=== PATIENT | male | born 1970 | race Caucasian/White ===

== ENCOUNTER 2021-04-03 11:19 | Outpatient (CLI) | payer BC, SELFPAY ==
[2021-04-03 18:14] LABS: Basophils Absolute Auto 0.1 K/mm3 (0.0-0.1); Basophils Percent Auto 0.7 % (0.2-1.2); Eosinophils Absolute Auto 0.5 K/mm3 (0-0.3); Eosinophils Percent Auto 6.9 % (0-4.4); Hematocrit 41.3 % (42.0-52.0); Hemoglobin 12.8 g/dL (14.0-18.0); Immature Granulocyte Absolute 0.01 K/mm3 (0.00-0.031); Immature Granulocyte Percent A 0.1 % (0-0.5); Lymphocytes Absolute Auto 0.86 K/mm3 (0.9-3.2); Lymphocytes Percent Auto 12.8 % (18.3-44.2); Mean Corpuscular Hemoglobin 26.1 pg (26-34); Mean Corpuscular Volume 84.3 fl (80-100); Mean Platelet Volume 11.1 fl (7.4-10.4); Monocytes Absolute Auto 0.5 K/mm3 (0.1-0.6); Monocytes Percent Auto 7.2 % (2.6-8.5); Neutrophils Absolute Auto 4.8 K/mm3 (1.3-6.7); Neutrophils Percent Auto 72.3 % (45.5-73.1); Platelet Count Result 286 k/mm3 (150-375); Red Cell Distribution Width 16.8 % (11.5-14.5); White Blood Count 6.7 K/mm3 (4.5-10.0)
[2021-04-03 18:17] LABS: Add Urine Microscopic? YES; Appearance Urine Clear (Clear); Bilirubin Urine Negative (Negative); Blood Urine 1+ (Negative); Color Urine Yellow (Yellow); Glucose Urine UA Negative (Negative); Ketones Urine Negative (Negative); Leukocyte Esterase Ur Negative LEU/UL (Negative); Mucus Urine Rare /lpf; Nitrate Urine Negative (Negative); Protein Urine Negative (Negative); RBC Urine 0-2 /hpf (0-2); Specific Grav Ur 1.018 (1.001-1.035); Urobilinogen Urine Negative mg/dL (<2.0); WBC Urine 0-3 /hpf
[2021-04-03 18:22] LABS: Alanine Aminotransferase 18 U/L (4-50); Alkaline Phosphatase 85 U/L (38-126); Anion Gap 4 mmol/L (8-16); Aspartate Amino Transferase 22 U/L (17-59); Bilirubin,Total 0.6 mg/dL (0.2-1.3); Blood Urea Nitrogen 13 mg/dL (9-20); Calcium 9.5 mg/dL (8.4-10.2); Carbon Dioxide 29 mmol/L (22-30); Chloride 104 mmol/L (98-107); Cholesterol 233 mg/dL (0-200); Estimated Glomerular Filt Rate > 60; Glucose 93 mg/dL (75-110); HDL Direct 63 mg/dL; Potassium 4.5 mmol/L (3.4-5.0); Sodium 137 mmol/L (137-145); Triglycerides 104 mg/dL (<150)
[2021-04-03 18:33] LABS: LDL Cholesterol Direct 127 mg/dL
[2021-04-03 18:39] LABS: Vitamin D 25 Hydroxy 15.9 ng/mL
[2021-04-03 18:54] LABS: Prostate Specific Antigen 0.4 ng/mL (< OR = 4.0)
[2021-04-03 19:35] LABS: Folic Acid > 20.0 ng/mL (2.76->20)
[2021-04-07 09:28] LABS: C-Peptide 1.91 ng/mL (0.80-3.85)
[2021-04-08 10:20] LABS: Testosterone Free 36.6 pg/mL (35.0-155.0); Testosterone Total 183 ng/dL (250-1100)
== END 2021-04-03 11:20 | disposition home or self-care (01) ==
PROVIDERS: PCP Family Medicine; Visit Provider Family Medicine
DX: Z12.5 Encounter for screening for malignant neoplasm of prostate (principal); Z99.89 Dependence on other enabling machines and devices; Z51.81 Encounter for therapeutic drug level monitoring; Z79.899 Other long term (current) drug therapy; Z82.62 Family history of osteoporosis; G47.33 Obstructive sleep apnea (adult) (pediatric); I10 Essential (primary) hypertension; Z86.79 Personal history of other diseases of the circulatory system; Z00.00 Encounter for general adult medical examination without abnormal findings
CPT/HCPCS: 36415; 80053; 80061; 81001; 82306; 82607; 82746; 84153; 84402; 84403; 84443; 84681; 85025; G0103

== ENCOUNTER 2021-04-14 13:42 | Outpatient (CLI) | payer BC, SELFPAY ==
[2021-04-14 17:05] LABS: D Dimer 0.68 ug/mL (<0.48)
[2021-04-16 22:31] LABS: LH 4.2 mIU/mL (1.5-9.3); Prolactin 12.4 ng/mL (***)
[2021-04-20 20:21] LABS: Estradiol, Ultrasensitive 32 pg/mL (< OR = 29)
== END 2021-04-14 13:43 | disposition home or self-care (01) ==
LOC: ANHBWCLAB 13:43
PROVIDERS: PCP Family Medicine; Visit Provider Family Medicine
DX: E29.1 Testicular hypofunction (principal)
CPT/HCPCS: 36415; 82670; 83002; 84146; 85380

== ENCOUNTER 2021-05-18 11:01 | Outpatient (CLI) | payer BC, SELFPAY ==
[2021-05-18 11:30] LABS: Basophils Percent Auto 0.8 % (0.2-1.2); Eosinophils Absolute Auto 0.5 K/mm3 (0-0.3); Eosinophils Percent Auto 9.8 % (0-4.4); Hemoglobin 13.2 g/dL (14.0-18.0); Immature Granulocyte Absolute 0.02 K/mm3 (0.00-0.031); Immature Granulocyte Percent A 0.4 % (0-0.5); Lymphocytes Absolute Auto 0.76 K/mm3 (0.9-3.2); Lymphocytes Percent Auto 14.9 % (18.3-44.2); Mean Corpuscular HGB Conc 32.2 g/dl (32-36); Mean Corpuscular Hemoglobin 26.7 pg (26-34); Mean Corpuscular Volume 82.8 fl (80-100); Mean Platelet Volume 10.8 fl (7.4-10.4); Monocytes Absolute Auto 0.6 K/mm3 (0.1-0.6); Neutrophils Absolute Auto 3.2 K/mm3 (1.3-6.7); Neutrophils Percent Auto 63.1 % (45.5-73.1); Platelet Count Result 248 k/mm3 (150-375); Red Blood Count 4.95 M/mm3 (4.6-6.20); Red Cell Distribution Width 15.2 % (11.5-14.5); Reticulocyte Hemoglobin Conten 32.9 pg (28.2-35.7); Reticulocytes Absolute 0.08 B/L (32.2-175.7); White Blood Count 5.1 K/mm3 (4.5-10.0)
[2021-05-18 16:44] LABS: Alanine Aminotransferase 22 U/L (4-50); Albumin Level 4.1 g/dL (3.5-5.1); Alkaline Phosphatase 94 U/L (38-126); Anion Gap 9 mmol/L (8-16); Aspartate Amino Transferase 29 U/L (17-59); Bilirubin,Total 0.5 mg/dL (0.2-1.3); Blood Urea Nitrogen 16 mg/dL (9-20); Calcium 9.3 mg/dL (8.4-10.2); Carbon Dioxide 25 mmol/L (22-30); Chloride 101 mmol/L (98-107); Estimated Glomerular Filt Rate > 60; Glucose 98 mg/dL (75-110); Lactate Dehydrogenase 458 U/L (313-618); Potassium 4.4 mmol/L (3.4-5.0); Sodium 135 mmol/L (137-145)
[2021-05-18 16:47] LABS: Iron 54 ug/dL (49-181)
[2021-05-18 16:58] LABS: Percent Iron Saturation 13 % (20-50)
[2021-05-18 17:40] LABS: Folic Acid 11.1 ng/mL (2.76->20)
[2021-05-22 12:19] LABS: Methylmalonic Acid 51 nmol/L (87-318)
[2021-05-23 17:26] LABS: Soluble Transferrin Receptor 1.29 mg/L (0.76-1.76)
== END 2021-05-18 11:02 | disposition home or self-care (01) ==
LOC: ANHLAB 11:06
PROVIDERS: PCP Family Medicine; Visit Provider Internal Medicine Hematology & Oncology
DX: D64.9 Anemia, unspecified (principal)
CPT/HCPCS: 36415; 80053; 82607; 82728; 82746; 83540; 83550; 83615; 83921; 84238; 85025; 85046

== ENCOUNTER 2021-08-10 08:02 | Outpatient (CLI) | payer BC, SELFPAY ==
[2021-08-10 20:51] LABS: Hemoglobin A1C 5.8 % (<5.7)
[2021-08-10 21:04] LABS: Cortisol Baseline 9.95 ug/dL
[2021-08-13 04:32] LABS: Sex Hormone Binding Globulin 23 nmol/L (10-50)
[2021-08-13 10:33] LABS: Testosterone Total 203 ng/dL (250-1100)
[2021-08-14 04:46] LABS: Testosterone Free 34.1 pg/mL (46.0-224.0)
[2021-08-16 07:11] LABS: FSH 3.7 mIU/mL (1.6-8.0); LH 3.2 mIU/mL (1.5-9.3)
[2021-08-16 22:47] LABS: Estradiol, Ultrasensitive 23 pg/mL (< OR = 29)
== END 2021-08-10 08:03 | disposition home or self-care (01) ==
LOC: ANHBWCLAB 08:05
PROVIDERS: PCP Family Medicine; Visit Provider Internal Medicine Endocrinology, Diabetes & Metabolism
DX: E29.1 Testicular hypofunction (principal); R79.89 Other specified abnormal findings of blood chemistry
CPT/HCPCS: 36415; 82533; 82670; 83001; 83002; 83036; 84270; 84402; 84403

== ENCOUNTER 2021-08-15 10:44 | Outpatient (CLI) | payer BC, SELFPAY ==
[2021-08-15 11:05] LABS: Basophils Percent Auto 0.5 % (0.2-1.2); Eosinophils Absolute Auto 0.4 K/mm3 (0-0.3); Eosinophils Percent Auto 6.3 % (0-4.4); Hematocrit 39.6 % (42.0-52.0); Hemoglobin 12.9 g/dL (14.0-18.0); Immature Granulocyte Absolute 0.01 K/mm3 (0.00-0.031); Immature Granulocyte Percent A 0.2 % (0-0.5); Lymphocytes Absolute Auto 0.85 K/mm3 (0.9-3.2); Lymphocytes Percent Auto 12.8 % (18.3-44.2); Mean Corpuscular HGB Conc 32.6 g/dl (32-36); Mean Corpuscular Volume 86.1 fl (80-100); Mean Platelet Volume 10.4 fl (7.4-10.4); Monocytes Absolute Auto 0.5 K/mm3 (0.1-0.6); Monocytes Percent Auto 8.1 % (2.6-8.5); Neutrophils Absolute Auto 4.8 K/mm3 (1.3-6.7); Neutrophils Percent Auto 72.1 % (45.5-73.1); Platelet Count Result 260 k/mm3 (150-375); Red Cell Distribution Width 14.3 % (11.5-14.5); White Blood Count 6.7 K/mm3 (4.5-10.0)
[2021-08-15 17:44] LABS: Iron 102 ug/dL (49-181)
[2021-08-15 17:54] LABS: Percent Iron Saturation 28 % (20-50)
[2021-08-15 19:15] LABS: Folic Acid 11.5 ng/mL (2.76->20)
== END 2021-08-15 10:45 | disposition home or self-care (01) ==
LOC: ANHLAB 10:47
PROVIDERS: PCP Family Medicine; Visit Provider Internal Medicine Hematology & Oncology
DX: D64.9 Anemia, unspecified (principal)
CPT/HCPCS: 36415; 82607; 82728; 82746; 83540; 83550; 85025

== ENCOUNTER → 2021-08-26 00:34 | Outpatient (CLI) | payer BC, SELFPAY ==
[2021-08-26 17:04] LABS: SARS-CoV-2 RNA PCR Negative
== END ==
PROVIDERS: PCP Family Medicine; Visit Provider Internal Medicine Gastroenterology
DX: Z01.812 Encounter for preprocedural laboratory examination (principal); Z20.822 Contact with and (suspected) exposure to COVID-19
CPT/HCPCS: C9803; U0003; U0005

== ENCOUNTER 2021-08-30 00:51 | Day surgery (SDC) | payer BC, SELFPAY ==
[2021-08-11 14:18] VITALS: BMI 56.6
--- NOTE | 2021-08-29 10:25 | WPDANESEPPF ---
Anes - Initial Pre Proc Eval Procedure: Operation Date: 08/30/21 10:00 Proposed Procedures p Screening Colonoscopy - Jose Alejandro Blackwell MD Date/Time: 08/29/21 10:25 Surgeon: Jose Alejandro Blackwell MD Pre Op Diagnosis: neoplasm screening Patient Data Age: 50 Gender: M Height: 1.88 m Weight: 200.2 kg Allergies Allergy/AdvReac Type Severity Reaction Status Date / Time No Known Allergies Allergy Verified 08/30/21 08:56 Home Medications Medication Instructions Recorded Confirmed Type cetirizine 10 mg tablet 10 mg PO DAILY PRN 04/03/21 08/30/21 History lisinopril 20 1 tablet PO DAILY #30 tablet 06/16/21 08/30/21 Rx mg-hydrochlorothiazide 25 mg tablet cholecalciferol (vitamin D3) 50 100 mcg PO DAILY cap 08/08/21 08/30/21 History mcg (2,000 unit) capsule cyanocobalamin (vitamin B-12) 5,000 mcg PO DAILY 08/08/21 08/30/21 History 5,000 mcg capsule ferrous sulfate 325 mg (65 mg 325 mg PO DAILY 08/08/21 08/30/21 History iron) tablet testosterone 20.25 mg/1.25 gram 1 pump TOPICAL DAILY 90 Days #150 g 08/17/21 08/30/21 Rx (1.62 %) transdermal gel pump Patient hx anesthesia problems: none Family hx anesthesia problems: none Results Review: All pre-operative results and documents have been reviewed as part of the pre-operative evaluation. [facility] Past Medical History Medical History H/O migraine H/O: HTN (hypertension) History of frequent headaches VICKI (obstructive sleep apnea) Screening for colon cancer 03/2021 normal cologard hx Screening PSA (prostate specific antigen) 04/03/2021 psa ordered Family History Family History Father Hypertension Lung cancer Mother Hypertension Sibling Thyroid disorder Grandparent Lung cancer Heart problem Social History Social History Smoking status: Never smoker Alcohol intake: current Drinks per week: 2 Substance use: never Substance use type: does not use Living arrangements: with friend(s) Spiritual care concerns: No Anes - Eval Final PreProcedure Day of Procedure 08/29/21 10:25 Patient weight: super morbidly obese Heart: regular rate and rhythm Lungs: clear to auscultation and normal air movement Airway: Mallampati scale class II Neurological: alert and oriented Last oral intake: >/= 8 hours ASA classification: III Emergent: no Anesthetic plan: proceed Anesthesia type and monitoring: general GIVS and standard monitoring Results Review: All pre-operative results and documents have been reviewed as part of the pre-operative evaluation. Informed Consent: The patient's anesthetic plan and its attendant risks and benefits were discussed with the patient/family/POA. Questions were solicited and answers provided to the satisfaction of the patient/family/POA.
[2021-08-30 09:02] VITALS: BP 159/79; PULSE 85; RESP 18; TEMP 36.1; O2SAT 98
[2021-08-30] MEDS: LACTATED RINGERS 1,000 ML 150 ML IV CONT (09:09)
--- NOTE | 2021-08-30 10:20 | PM.HPGS ---
History of Present Illness History of Present Illness Consent: Risks, benefits, and alternatives have been discussed and questions answered. Patient agrees to proceed with procedure. Chief complaint: neoplasm screening Narrative: Yandel Li is a 50 year old male here for first screening colonoscopy Review of Systems Constitutional: Constitutional: Denies headache(s) and Denies weakness Eyes: Eyes: Denies blurry vision ENT: Reports Normal hearing present, Denies headache(s) and Denies neck pain Cardiovascular: Cardiovascular: Denies chest pain and Denies dyspnea Respiratory: Respiratory: Denies dyspnea Gastrointestinal: Gastrointestinal: Reports no additional gastrointestinal complaints Genitourinary: Genitourinary: Denies dysuria Musculoskeletal: Musculoskeletal: Denies neck pain Integumentary/Breasts: Skin/Breast: Denies dry skin Neurologic: Reports Normal hearing present, Denies headache(s) and Denies weakness Psychiatric: Psychiatric: Denies anxiety Endocrine: Endocrine: Denies change in body appearance Hematologic/Lymphatic: Hematologic/Lymphatic: Denies easy bleeding Allergic/Immunologic: Allergic/Immunologic: Denies urticaria PMFSH Past Medical History Medical History H/O migraine H/O: HTN (hypertension) History of frequent headaches VICKI (obstructive sleep apnea) Screening for colon cancer 03/2021 normal cologard hx Screening PSA (prostate specific antigen) 04/03/2021 psa ordered Family History Family History Father Hypertension Lung cancer Mother Hypertension Sibling Thyroid disorder Grandparent Lung cancer Heart problem Social History Social History Smoking status: Never smoker Alcohol intake: current Drinks per week: 2 Substance use: never Substance use type: does not use Living arrangements: with friend(s) Spiritual care concerns: No Meds Home Medications and Allergies Home Medications Medication Instructions Recorded Confirmed Type cetirizine 10 mg tablet 10 mg PO DAILY PRN 04/03/21 08/30/21 History lisinopril 20 1 tablet PO DAILY #30 tablet 06/16/21 08/30/21 Rx mg-hydrochlorothiazide 25 mg tablet cholecalciferol (vitamin D3) 50 100 mcg PO DAILY cap 08/08/21 08/30/21 History mcg (2,000 unit) capsule cyanocobalamin (vitamin B-12) 5,000 mcg PO DAILY 08/08/21 08/30/21 History 5,000 mcg capsule ferrous sulfate 325 mg (65 mg 325 mg PO DAILY 08/08/21 08/30/21 History iron) tablet testosterone 20.25 mg/1.25 gram 1 pump TOPICAL DAILY 90 Days #150 g 08/17/21 08/30/21 Rx (1.62 %) transdermal gel pump Allergies Allergy/AdvReac Type Severity Reaction Status Date / Time No Known Allergies Allergy Verified 08/30/21 08:56 Vital Signs Vital Signs - 24 hr 08/30/21 09:02 Temperature 96.9 F L Pulse Rate 85 Respiratory Rate 18 Blood Pressure 159/79 H Pulse Oximetry 98 Exam Const: General: comfortable and no acute distress HENMT: General nose exam: Normal nares present Eyes: General: appearance normal, both eyes and all related structures Neck: Neck: no JVD Resp: Auscultation: clear to auscultation bilaterally Cardio: Rate: regular rate Rhythm: regular rhythm GI: Inspection: non-distended GI Palp: Yes Soft to palpation Skin: General skin exam: normal color Neuro: General: gait normal Speech: normal speech Extrem: General: normal to inspection Psych: Mental Status: mental status grossly normal Assessment and Plan Assessment and plan (1) Screening for colon cancer: Code(s): Z12.11 - Encounter for screening for malignant neoplasm of colon Status: Acute Assessment and Plan: colonoscopy
[2021-08-30 10:56] VITALS: BP 104/55; PULSE 77; RESP 17; O2SAT 99
[2021-08-30 11:06] VITALS: BP 120/77; PULSE 72; RESP 18; O2SAT 100
[2021-08-30 11:16] VITALS: BP 129/71; PULSE 71; RESP 16; O2SAT 99
== END 2021-08-30 11:39 | disposition home or self-care (01) ==
PROVIDERS: PCP Family Medicine; Visit Provider Internal Medicine Gastroenterology
PROC: 0DJD8ZZ Inspection of Lower Intestinal Tract, Via Natural or Artificial Opening Endoscopic (ICD-10-PCS; CPT 45378; principal; 2021-08-30 10:00)
DX: Z12.11 Encounter for screening for malignant neoplasm of colon (principal); D12.2 Benign neoplasm of ascending colon; K64.8 Other hemorrhoids; K64.4 Residual hemorrhoidal skin tags; I10 Essential (primary) hypertension; G47.33 Obstructive sleep apnea (adult) (pediatric); E66.01 Morbid (severe) obesity due to excess calories; Z68.43 Body mass index [BMI] 50.0-59.9, adult
CPT/HCPCS: 45385; 88305; C9803; J2704; J7120; U0003; U0005

== ENCOUNTER 2021-10-16 19:01 | Emergency (ER) | payer BC, SELFPAY ==
--- NOTE | ~2021-10-16 | XR_ITS ---
EXAMINATION: XR chest 2V EXAM DATE: 10/16/2021 19:40 INDICATION: Cough for one week. TECHNIQUE: Frontal and lateral projections of the chest obtained and reviewed. There is no prior zaida dy for comparison. FINDINGS: The lungs are clear. There are no pleural effusions. The cardiomediastinal silhouette is within normal limits. There is no pneumothorax suspected. The bones and soft tissues are unremarkab le. IMPRESSION: No acute cardiopulmonary findings. Reviewed, dictated and finalized at location A. HER ASST
[2021-10-16 19:06] VITALS: BP 160/81; PULSE 107; RESP 20; TEMP 38.3; O2SAT 96
--- NOTE | 2021-10-16 19:24 | ED.GENADULT ---
HPI - General Adult General Chief complaint: Fever Stated complaint: feeling bad after shingle shot Source: patient Mode of arrival: ambulatory Limitations: no limitations History of Present Illness HPI narrative: 50 y/o male. PMHx HTN, LENNY. Presents to [facility] today with acute complaints of nasal congestion, semi-productive cough, body aches, and chills for the past 1 week. Pt tells me that he had a Shingles shot 5 in the past 1 week, and thought his symptoms were related to his immunization, however have failed to improve despite OP OTC remedies. Reported fevers. No GARCIA, sore throat, otalgia. No chest pain, palpitations, dyspnea, edema. No rash. Client is without additional acute c/o illness upon PE. Related Data Home Medications Medication Instructions Recorded Confirmed cetirizine 10 mg tablet 10 mg PO DAILY PRN 04/03/21 10/16/21 cholecalciferol (vitamin D3) 50 100 mcg PO DAILY cap 08/08/21 10/16/21 mcg (2,000 unit) capsule cyanocobalamin (vitamin B-12) 5,000 mcg PO DAILY 08/08/21 10/16/21 5,000 mcg capsule ferrous sulfate 325 mg (65 mg 325 mg PO DAILY 08/08/21 10/16/21 iron) tablet Allergies Allergy/AdvReac Type Severity Reaction Status Date / Time No Known Allergies Allergy Verified 10/16/21 19:06 Review of Systems Review of Systems: CONSTITUTIONAL: Positive fever. No chills, sweats. Bodyaches. EYES: Denies visual changes, redness, discharge. ENT: Positive rhinorrhea, congestion. No sore throat, otalgia. CARDIOVASCULAR: Denies chest pain, palpitations, edema. RESPIRATORY: Denies dyspnea, wheezing. Positive cough GASTROINTESTINAL: Denies abdominal pain, nausea, vomiting, diarrhea. GENITOURINARY: Denies dysuria, hematuria, abnormal discharge SKIN: Denies rash or itching. MUSCULOSKELETAL: Denies acute back pain, joint pain, or myalgia. NEUROLOGIC: Denies numbness, or focal weakness. PSYCHIATRIC: Denies anxiety or depression. All systems reviewed & are unremarkable except as noted in HPI and below PMFSH Past Medical History Medical History H/O migraine H/O: HTN (hypertension) History of frequent headaches VICKI (obstructive sleep apnea) Screening for colon cancer 03/2021 normal cologard hx Screening PSA (prostate specific antigen) 04/03/2021 psa ordered Family History Family History Father Hypertension Lung cancer Mother Hypertension Sibling Thyroid disorder Grandparent Lung cancer Heart problem Social History Social History Smoking status: Never smoker Alcohol intake: current Drinks per week: 2 Substance use: never Substance use type: does not use Spiritual care concerns: No Exam Narrative: GENERAL: This is a well-nourished, well-developed adult, in no apparent distress. HEAD: normocephalic, atraumatic. EYES: PERRL. Sclera clear/white. EARS: External ears normal, auditory canals clear and without drainage, TMs normal. NOSE: External nose normal. Positive Rhinorrhea, nasal discharge, no obstruction, nares patent. THROAT: Mucous membranes moist, posterior pharynx erythematous. No exudates. NECK: Neck supple, non-tender without lymphadenopathy, masses or thyromegaly. CARDIOVASCULAR: Regular rate and rhythm without murmurs, gallops, or rubs. RESPIRATORY:Upper airway Rhonchi, cleared with cough. Breath sounds equal bilaterally. No wheezes, rales, or distress. GASTROINTESTINAL: Abdomen soft, non-tender, nondistended. Bowel sounds are active. No guarding. SKIN: warm, intact with no suspicious lesions or rash, good texture and turgor. NEURO: Alert, active, and age appropriate. No focal neurologic deficits. Course Vital Signs Vital signs: Vital Signs Temperature 38.3 C H 10/16/21 19:06 Pulse Rate 107 H 10/16/21 19:06 Respiratory Rate 20 10/16/21 19:06 Blood Pressur
== END 2021-10-16 20:00 | disposition home or self-care (01) ==
PROVIDERS: Emergency Provider Nurse Practitioner Adult Health; PCP Family Medicine
DX: U07.1 COVID-19 (principal); I10 Essential (primary) hypertension
CPT/HCPCS: 71046; 87426; 87804; 99213; C9803; G0463

== ENCOUNTER 2022-02-05 10:58 | Outpatient (CLI) | payer BC, SELFPAY ==
[2022-02-05 13:12] LABS: Hemoglobin 14.3 g/dL (14.0-18.0)
[2022-02-05 13:59] LABS: Prostate Specific Antigen 0.7 ng/mL (< OR = 4.0)
[2022-02-08 10:57] LABS: Testosterone Free 33.6 pg/mL (46.0-224.0); Testosterone Total 379 ng/dL (250-1100)
== END 2022-02-05 10:59 | disposition home or self-care (01) ==
LOC: ANHWCLAB 11:00
PROVIDERS: PCP Family Medicine; Visit Provider Internal Medicine Endocrinology, Diabetes & Metabolism
DX: E29.1 Testicular hypofunction (principal); E66.9 Obesity, unspecified; R79.89 Other specified abnormal findings of blood chemistry; Z98.84 Bariatric surgery status
CPT/HCPCS: 36415; 84153; 84402; 84403; 84443; 85014; 85018; G0103

== ENCOUNTER 2022-02-24 14:57 | Emergency (ER) | payer BC, SELFPAY ==
[2022-02-24 15:04] VITALS: BP 130/67; PULSE 91; RESP 14; TEMP 37.6; O2SAT 96
[2022-02-24 15:10] VITALS: BP 112/68; PULSE 90
[2022-02-24 15:14] VITALS: BP 119/65; PULSE 93
[2022-02-24 15:18] VITALS: BP 111/64; PULSE 89
--- NOTE | 2022-02-24 15:22 | ED.GENADULT ---
HPI - General Adult General Chief complaint: Dizziness Stated complaint: Passed Out Time Seen by Provider: 02/24/22 15:23 Source: patient and RN notes reviewed Mode of arrival: ambulatory Limitations: no limitations History of Present Illness HPI narrative: 51-year-old male with history of HTN, bariatric surgery, presented for complaint of syncopal episode 20 minutes prior to arrival. Patient does not recall the event. Sister is accompanying patient who states she he was out for approximately 2 minutes. She states he was sitting, stood up to walk a few feet prior to passing out. She endorses he hit the back of his head when he passed out. Endorses feeling dizzy yesterday and checked his blood pressure 98/63 at home yesterday. Related Data Home Medications Medication Instructions Recorded Confirmed cetirizine 10 mg tablet 10 mg PO DAILY PRN 04/03/21 02/05/22 omeprazole 02/24/22 02/24/22 Allergies Allergy/AdvReac Type Severity Reaction Status Date / Time No Known Allergies Allergy Verified 02/24/22 15:39 Review of Systems Review of Systems: CONSTITUTIONAL: Denies body aches, fever, chills, or sweats. EYES: Denies visual changes, redness, or discharge. ENT: Denies rhinorrhea, congestion, sore throat, or otalgia. CARDIOVASCULAR: Denies chest pain, palpitations, or edema. RESPIRATORY: Denies cough or dyspnea. GASTROINTESTINAL: Denies abdominal pain, nausea, vomiting, or diarrhea. GENITOURINARY: Denies dysuria or hematuria. SKIN: Denies rash, itching, or wounds. MUSCULOSKELETAL: Denies back pain, joint pain, or myalgia. NEUROLOGIC: Endorses dizziness syncope denies numbness, tingling, or weakness, headache PSYCH: Denies depression or anxiety. All systems reviewed & are unremarkable except as noted in HPI and below PMFSH Past Medical History Medical History (Updated 02/24/22 @ 15:40 by Susie Randolph APRN) H/O migraine H/O: HTN (hypertension) History of frequent headaches VICKI (obstructive sleep apnea) Screening for colon cancer 03/2021 normal cologard hx Screening PSA (prostate specific antigen) 04/03/2021 psa ordered Surgical History Surgical History History of bariatric surgery Family History Family History Father Hypertension Lung cancer Mother Hypertension Sibling Thyroid disorder Grandparent Lung cancer Heart problem Social History Social History Smoking status: Never smoker Alcohol intake: former Drinks per week: 2 Substance use: never Substance use type: does not use Spiritual care concerns: No Comments At time of signature, I have reviewed and agree with nursing past medical, surgical, social and family history unless otherwise noted. Please see nursing chart for further information. There is no relevant family history pertinent to the presenting complaint Exam Narrative: GENERAL: Well-appearing, HEAD: Normocephalic, atraumatic. EYES: EOMI. ENT: Mucous membranes pink and moist. No rhinorrhea. TMs normal bilaterally. NECK: Normal AROM. Supple. No lymphadenopathy. CHEST: No respiratory distress. Clear to auscultation. HEART: Regular rate and rhythm. No murmur appreciated. Normal peripheral pulses. ABDOMEN: Soft, nontender, nondistended, normal active bowel sounds. MUSCULOSKELETAL: No bony tenderness. EXTREMITIES: Normal range of motion. No edema. SKIN: Warm, dry, no rash. Capillary refill normal. Normal skin turgor. NEURO:No focal deficits. Alert and oriented x3. No facial droop/asymmetry noted bilaterally. Ambulatory exam with a normal based, steady gait. PSYCH: Normal affect. No signs of depression or anxiety. Course Course Emergency Course: Patient is aware of diagnosis, understands and agrees to treatment plan. Anticipatory guidance given. Patient agrees to follow-up a
--- NOTE | 2022-02-24 15:35 | ECG_ITS ---
Measurements Intervals [place] Rate: 84 P: 43 CT: 162 QRS: 5 QRSD: 106 T: 0 QT: 379 QTc: 449 Interpretive Statements SINUS RHYTHM POOR R-WAVE PROGRESSION ABNORMAL ECG NO PREVIOUS ECG AVAILABLE FOR COMPARISON Electronically Signed On 02-25-2022 11:14:12 CDT by Alvarez Blood M.D.
== END 2022-02-24 15:40 | disposition short-term general hospital (02) ==
PROVIDERS: Emergency Provider Nurse Practitioner Family; PCP Family Medicine
DX: R55 Syncope and collapse (principal); I10 Essential (primary) hypertension; G47.33 Obstructive sleep apnea (adult) (pediatric)
CPT/HCPCS: 93005; 99215; G0463

== ENCOUNTER 2022-02-24 16:09 | Observation (INO) | payer BC, SELFPAY ==
[2022-02-24] VITALS (17 sets, daily range): BP systolic 118–139; BP diastolic 57–84; PULSE 58–108; RESP 14–18; TEMP 36.6; O2SAT 94–100; BMI 47.0
--- NOTE | ~2022-02-24 | US_ITS ---
EXAMINATION: US carotid duplex BI DATE: 02/25/2022 09:52 INDICATION: Syncope. TECHNIQUE: Grayscale, color Doppler, and pulsed Doppler images of the cervical carotid arteries were obtained. The degree of vessel stenosis is placed in one of the following categories: normal, <50%, 5 0-69%, >=70% but less than near-occlusion, near-occlusion, or total occlusion. Note that percent sten osis relative to normal distal artery lumen diameter is indirectly measured from velocity measurement s as described by Ronak, et al. Radiology 2003; 229:340-346. COMPARISON: None. FINDINGS: RIGHT: The right common carotid artery (CCA) peak systolic velocity (PSV) is 138 cm/s. The right internal ca rotid artery (ICA) PSV is 140 cm/s. The right ICA end-diastolic velocity (EDV) is 24 cm/s. The right ICA/CCA PSV ratio is 1.0. Grayscale and color Doppler images yield an estimate of <50% diameter reduc tion from plaque in the ICA. There is antegrade flow in the right vertebral artery. LEFT: The left CCA PSV is 207 cm/s. The left ICA PSV is 156 cm/s. The left ICA EDV is 21 cm/s. The left ICA /CCA PSV ratio is 0.8. Grayscale and color Doppler images yield an estimate of <50% diameter reductio n from plaque in the ICA. There is antegrade flow in the left vertebral artery. IMPRESSION: 1. <50% stenosis in the right internal carotid artery. 2. <50% stenosis in the left internal carotid artery. Reviewed, dictated and finalized at location A.
--- NOTE | ~2022-02-24 | CT_ITS ---
EXAMINATION: CT brain wo con DATE: 02/24/2022 16:42 INDICATION: fall, syncope, struck head TECHNIQUE: Computed tomography (CT) of the head was performed without intravenous contrast. The mA wa s adjusted according to patient size. Iterative reconstruction technique was employed. The dose-lengt h product was 605.33 mGy-cm. COMPARISON: None FINDINGS: No acute intracranial hemorrhage or extra-axial fluid collection. No hydrocephalus, mass, or herniation. No acute ischemic infarct. Unremarkable dural venous sinus attenuation. No acute osseous abnormality. Ethmoid air cell mucosal thickening. Opacification and possible air-fluid level in the partially visu alized left maxillary sinus. Otherwise the aerated spaces are clear. IMPRESSION: No acute intracranial process. Possible left maxillary acute sinusitis. Reviewed, dictated and finalized at location K.
--- NOTE | ~2022-02-24 | XR_ITS ---
EXAMINATION: XR chest 1V Exam Date/Time: 02/24/2022 16:35 CDT CLINICAL HISTORY: syncope Comparison: 10/16/2021. RESULT: Lines, tubes, and devices: None. Lungs and pleura: Clear. Cardiomediastinal silhouette: Stable cardiomediastinal silhouette. Other: No acute osseous or upper abdominal finding. IMPRESSION: No acute cardiopulmonary process Reviewed, dictated and finalized at location K.
--- NOTE | ~2022-02-24 | CT_ITS ---
EXAMINATION: CT cervical spine wo con DATE: 02/24/2022 16:43 INDICATION: fall, syncope, struck head TECHNIQUE: Computed tomography (CT) of the cervical spine was performed without intravenous contrast. Automated exposure control and iterative reconstruction technique were employed. The dose-length pro duct was 491.35 mGy-cm. COMPARISON: None FINDINGS: Counting reference: Craniocervical junction. There are seven cervical type vertebral bodies. Anatomic Variants: None. Vertebral Body Alignment: Intact. Craniocervical junction: Moderate degenerative change. Alignment intact. Osseous structures/fracture: No evidence of a lytic or blastic process in the visualized spine. N o evidence of acute fracture. Cervical soft tissues: The paraspinal soft tissues planes are maintained. Degenerative changes: Multilevel moderate facet arthropathy and degenerative disc disease. The level bilateral severe neural foraminal narrowing.. IMPRESSION: No acute fracture or traumatic malalignment in the cervical spine. Reviewed, dictated and finalized at location K.
--- NOTE | 2022-02-24 16:15 | ECG_ITS ---
Measurements Intervals [place] Rate: 81 P: 32 FL: 164 QRS: -14 QRSD: 105 T: 17 QT: 376 QTc: 438 Interpretive Statements SINUS RHYTHM POOR R-WAVE PROGRESSION ABNORMAL ECG COMPARED TO ECG 02/24/2022 15:34:23 NO SIGNIFICANT CHANGES Electronically Signed On 02-25-2022 11:14:49 CDT by Alvarez Blood M.D.
[2022-02-24 16:29] LABS: Basophils Percent Auto 0.4 % (0.2-1.2); Eosinophils Absolute Auto 0.4 K/mm3 (0-0.3); Eosinophils Percent Auto 5.2 % (0-4.4); Hematocrit 44.6 % (42.0-52.0); Hemoglobin 14.3 g/dL (14.0-18.0); Immature Granulocyte Absolute 0.01 K/mm3 (0.00-0.031); Immature Granulocyte Percent A 0.1 % (0-0.5); Lymphocytes Absolute Auto 0.73 K/mm3 (0.9-3.2); Lymphocytes Percent Auto 10.9 % (18.3-44.2); Mean Corpuscular HGB Conc 32.1 g/dl (32-36); Mean Corpuscular Hemoglobin 28.3 pg (26-34); Mean Corpuscular Volume 88.3 fl (80-100); Mean Platelet Volume 11.9 fl (7.4-10.4); Monocytes Absolute Auto 0.9 K/mm3 (0.1-0.6); Monocytes Percent Auto 13.1 % (2.6-8.5); Neutrophils Absolute Auto 4.7 K/mm3 (1.3-6.7); Neutrophils Percent Auto 70.3 % (45.5-73.1); Platelet Count Result 245 k/mm3 (150-375); Red Blood Count 5.05 M/mm3 (4.6-6.20); Red Cell Distribution Width 14.2 % (11.5-14.5); White Blood Count 6.7 K/mm3 (4.5-10.0)
--- NOTE | 2022-02-24 16:30 | ED.SYNCOPE ---
HPI - Syncope General Chief Complaint: Syncope Stated Complaint: syncope Time Seen by Provider: 02/24/22 16:09 Source: patient, family and EMS Mode of arrival: ambulatory Limitations: no limitations History of Present Illness HPI narrative: Patient is 51 years old white male came to the emergency room by ambulance because of syncope. Patient got up from sitting position, walk up to 8 feet then felt lightheadedness and dizziness and fell to the ground unresponsive for maximum 2 minutes, witnessed by his sister. Then got up without any complaint. Patient denies any fever, chills, nausea, vomiting, chest pain, shortness of breath, headache, neck pain, back pain or abdominal pain. Patient also denies any urinary symptoms. Patient is a status post bariatric surgery, gastric bypass at [facility] in January 16, 2022. History of hypertension on lisinopril/hydrochlorothiazide . Patient used to be 428 pound currently 388. Patient reported having intermittent dizziness when he stands up and walk over the last 48 hours. Related Data Home Medications Medication Instructions Recorded Confirmed omeprazole 20 mg PO DAILY 02/24/22 02/24/22 Allergies Allergy/AdvReac Type Severity Reaction Status Date / Time No Known Allergies Allergy Verified 02/24/22 15:39 Review of Systems Review of Systems: CONSTITUTIONAL: Denies fever, chills, or sweats. EYES: Denies visual changes, redness, or discharge. ENT: Denies rhinorrhea, congestion, sore throat, or otalgia. CARDIOVASCULAR: Denies chest pain, palpitations, or edema. RESPIRATORY: Denies cough or dyspnea. GASTROINTESTINAL: Denies abdominal pain, nausea, vomiting, or diarrhea. GENITOURINARY: Denies dysuria or hematuria. SKIN: Denies rash or itching. MUSCULOSKELETAL: Denies back pain, joint pain, or myalgia. NEUROLOGIC: Denies headache, numbness, or weakness. PSYCHIATRIC: Denies anxiety or depression. [facility] Past Medical History Medical History H/O migraine H/O: HTN (hypertension) History of frequent headaches VICKI (obstructive sleep apnea) Screening for colon cancer 03/2021 normal cologard hx Screening PSA (prostate specific antigen) 04/03/2021 psa ordered Surgical History Surgical History History of bariatric surgery Family History Family History Father Hypertension Lung cancer Mother Hypertension Sibling Thyroid disorder Grandparent Lung cancer Heart problem Social History Social History Smoking status: Never smoker Alcohol intake: former Drinks per week: 2 Substance use: never Substance use type: does not use Spiritual care concerns: No Exam Narrative: General appearance: Well-developed, well-nourished, obese, does not look in pain or distress, sister at the bedside Skin: Normal color Head: Normocephalic, nontraumatic Eyes: Clear conjunctiva ENT: Oropharynx normal, ears normal, nose normal Neck: Supple, nontender Chest and respiratory: Airway patent, no respiratory distress, no accessory muscle use Heart: Regular rate/rhythm Abdomen: Soft, nontender, no organomegaly, quiet bowel sounds Vascular: Normal peripheral pulses, normal capillary refill. Musculoskeletal: Normal range of motion, nontender back Neurologic: Alert and oriented ?3, ORTHOPEDICS NURSE is normal as tested, no gross motor deficit Course Course Emergency Course: Patient is status post gastric bypass January 16, 2022, still taking the same dose of blood pressure medicine, lisinopril/hydrochlorothiazide 20/25. P
--- NOTE | 2022-02-24 16:34 | PC.NURSE ---
Pt to imaging via stretcher
[2022-02-24 16:39] LABS: Alanine Aminotransferase 20 U/L (4-50); Albumin Level 4.5 g/dL (3.5-5.1); Alkaline Phosphatase 89 U/L (38-126); Anion Gap 13 mmol/L (8-16); Aspartate Amino Transferase 29 U/L (17-59); Bilirubin,Total 0.6 mg/dL (0.2-1.3); Blood Urea Nitrogen 40 mg/dL (9-20); Calcium 9.3 mg/dL (8.4-10.2); Carbon Dioxide 23 mmol/L (22-30); Chloride 104 mmol/L (98-107); Estimated CRCL calculation 74 ml/min; Estimated Glomerular Filt Rate 40; Glucose 93 mg/dL (65-110); Potassium 3.7 mmol/L (3.4-5.0); Sodium 140 mmol/L (137-145)
[2022-02-24 16:40] LABS: INR 1.1
[2022-02-24 16:41] LABS: Partial Thromboplastin Time 32.4 SECONDS (22.3-36.8)
--- NOTE | 2022-02-24 16:45 | PC.NURSE ---
Pt returned from imaging at this time.
--- NOTE | 2022-02-24 16:51 | PC.NURSE ---
Pt given urinal , attempting specimen.
[2022-02-24 17:08] LABS: Appearance Urine Clear (Clear); Bilirubin Urine 1+ (Negative); Blood Urine Negative (Negative); Color Urine Yellow (Yellow); Glucose Urine UA Negative (Negative); Ketones Urine 1+ mg/dL (Negative); Leukocyte Esterase Ur Negative LEU/UL (Negative); Nitrate Urine Negative (Negative); Protein Urine Negative (Negative); pH Urine 5.5 (5.0-9.0)
[2022-02-24 17:10] LABS: Add Urine Microscopic? YES
[2022-02-24 17:14] LABS: Mucus Urine Rare /lpf; RBC Urine 0-2 /hpf (0-2); Squamous Epithelial Cell Urine Rare /hpf (Few)
--- NOTE | 2022-02-24 17:57 | PC.NURSE ---
Bedside shift report given to Macarena LATHAM
--- NOTE | 2022-02-24 18:03 | PC.NURSE ---
Assumed care of pt at this time. Pt alert and upright on stretcher, no request at this time. PT alert and upright on stretcher
[2022-02-24] MEDS: SODIUM CHLORIDE 0.9% IV 1,000 ML 999 ML IV CONT ×3 (18:04→22:16)
--- NOTE | 2022-02-24 20:46 | PM.IMHP ---
H&P: HPI History of Present Illness Date/Time: 02/24/22 19:46 Chief Complaint: Passed out Narrative: 51-year-old male with past medical history of hypertension, morbid obesity status post gastric bypass procedure January 16, 2022 who presented to the ER via EMS after having a syncopal event. The patient reports that he is set up and was walking across the room when he felt dizzy and lightheaded and passed out. He was out for no more than 2 minutes. The patient reports that he has been eating a soft mechanical diet with 1 or 2 protein shakes a day. He has been trying to drink enough water. He in fact thought he had been drinking enough water. He denied any recent nausea or vomiting. He has not had any abdominal pain fevers or chills. He has not noticed any change in his urine output are darker urine. He did not have any preceding palpitations, chest pain or shortness of breath. The patient has CT scan in the ER which demonstrated left maxillary sinusitis. The patient denies any pain in his sinuses but does have chronic rhinorrhea and nasal congestion. He has not been having any fevers or chills. He had a gastric bypass at [facility]. His weight prior to preop diet was 427 lb. His weight on day of surgery was 404 lb. He is down to 366 lb currently. 61 lb weight loss total, 38 lb weight loss since surgery. Review of Systems Review of Systems: 12 systems were reviewed with pertinent positives and negatives per HPI. Except as documented in the HPI, all other systems were reviewed and are negative. [facility] Past Medical History Medical History (Updated 02/24/22 @ 21:18 by Mariella Mixon DO) BMI greater than 40 COVID-19 (~10/2021) Essential hypertension History of frequent headaches Low testosterone in male Migraines VICKI (obstructive sleep apnea) Screening for colon cancer 03/2021 normal cologard hx Screening PSA (prostate specific antigen) 04/03/2021 psa ordered Vitamin D deficiency Surgical History Surgical History (Updated 02/24/22 @ 20:58 by Mariella Mixon DO) History of gastric bypass (01/16/22) Weight prior to bypass 427 lb Family History Family History Father , At age 82 Hypertension Lung cancer Mother Hypertension Sibling Thyroid disorder Grandparent Lung cancer Heart problem Social History Social History (Updated 02/24/22 @ 21:13 by Mariella Mixon DO) Social History: The patient is single and has never been . 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 He is a lifelong nonsmoker. He only rarely drink alcohol prior to his bypass procedure. Code status: Full code Surrogate decision maker: Shweta (sister) Smoking status: Never smoker Alcohol intake: former Drinks per week: 1 Substance use: never Substance use type: does not use Spiritual care concerns: No Meds Home Medications and Allergies Home Medications Medication Instructions Recorded Confirmed Type lisinopril 20 1 tablet PO DAILY #90 tablet 10/18/21 02/24/22 Rx mg-hydrochlorothiazide 25 mg tablet testosterone 20.25 mg/1.25 gram 2 pump TOPICAL DAILY 90 Days #225 g 02/14/22 02/24/22 Rx (1.62 %) transdermal gel pump [id number] 1 cap PO DAILY 02/24/22 02/24/22 History [Bariatric Multivitamins] omeprazole 20 mg PO DAILY 02/24/22 02/24/22 History Allergies Allergy/AdvReac Type Severity Reaction Status Date / Time No Known Allergies Allergy Verified 02/24/22 15:39 Vital Signs Vital Signs - 24 hr 02/24/22 16:16 02/24/22 16:20 02/24/22 16:25 Temperature 97.8 F Pulse Rate 83 78 80 Respiratory Rate 18 Blood Pressure 133/82 124/64 Pulse Oximetry 98 02/24/22 16:26 02/24/22 16:28 02/24/22 16:46 Temperature Pulse Rate 79 108 H 82 Respiratory Rate 18 Blood Pressure 132/71 125/84 128/73 Pulse Oximetry 98 02/24/22 17:07 02/24/22 17:19 02/24/22 18:37
[2022-02-24] MEDS: SODIUM CHLORIDE 0.9% IV 1,000 ML 150 ML IV CONT (22:30)
[2022-02-25] VITALS (8 sets, daily range): BP systolic 111–130; BP diastolic 56–71; PULSE 56–83; RESP 16; TEMP 36.5–37.1; O2SAT 95–97
[2022-02-25] MEDS: SODIUM CHLORIDE 0.9% IV 1,000 ML 150 ML IV CONT ×2 (05:19→12:42)
[2022-02-25 05:32] LABS: Anion Gap 8 mmol/L (8-16); Blood Urea Nitrogen 30 mg/dL (9-20); Calcium 8.1 mg/dL (8.4-10.2); Carbon Dioxide 21 mmol/L (22-30); Chloride 110 mmol/L (98-107); Estimated CRCL calculation 125 ml/min; Estimated Glomerular Filt Rate > 60; Glucose 80 mg/dL (65-110); Potassium 3.5 mmol/L (3.4-5.0); Sodium 139 mmol/L (137-145)
--- NOTE | 2022-02-25 08:09 | PM.IMPN ---
Progress Note: A&P Assessment and Plan (1) Syncope: Qualifiers: Syncope type: unspecified Qualified Code(s): R55 - Syncope and collapse Code(s): R55 - Syncope and collapse Status: Acute Assessment and Plan: Patient recently underwent gastric bypass surgery and reports syncopal episode where and he was walking across the room felt dizzy and lightheaded, and passed out. He has been eating a soft mechanical diet and trying to drink enough water, though it is likely he has not been drinking enough. Orthostatics were normal. WBC within normal limits, urine with 1+ ketones and 1+ bilirubin, and 4-6 white blood cells, not suspicious for infection. no significant electrolyte abnormalities aside from mild hypocalcemia today.He denies nausea vomiting fevers, chills, abdominal pain. Chest x-ray showed no acute cardiopulmonary process CT cervical spine showed no acute fracture or traumatic malalignment cervical spine CT head showed no acute intracranial process with possible left maxillary acute sinusitis. EKG showed normal sinus rhythm. carotid ultrasound ordered. Continue to monitor vital signs/ tele magnesium today TSH today continue IV fluid resuscitation (2) Acute kidney injury: Code(s): N17.9 - Acute kidney failure, unspecified Status: Acute Assessment and Plan: BUN has improved from yesterday after 3 L IV bolus and IV fluids at 150 mL/hour. Creatinine has completely normalized from yesterday's 1.8. will continue IV fluid hydration in's and out's (3) History of bariatric surgery: Code(s): Z98.84 - Bariatric surgery status Status: Acute Assessment and Plan: January 2022, without complications. Low-fiber diet here and dietary supplement (4) Morbid obesity: Code(s): E66.01 - Morbid (severe) obesity due to excess calories Status: Acute Assessment and Plan: Gastric bypass at [facility] in January 2022; weight prior to surgery 404, currently 366 (38 lb weight loss). plan as above (5) Essential hypertension: Code(s): I10 - Essential (primary) hypertension Status: Acute Assessment and Plan: patient has been normotensive during his stay here. his lisinopril HCTZ 20/25 has been held at this time. with weight loss, he may potentially no longer need this medication.gimen. Continue to hold lisinopril HCTZ 20/25. (6) DVT prophylaxis: Code(s): Z29.9 - Encounter for prophylactic measures, unspecified Status: Acute Assessment and Plan: Lovenox (7) VICKI (obstructive sleep apnea): Code(s): G47.33 - Obstructive sleep apnea (adult) (pediatric) Status: Acute Assessment and Plan: Treated with CPAP at home. continue CPAP while here Subjective Date/time seen: 02/25/22 08:09 Objective Data Vital Signs Vital Signs: Vital Signs - 24 hr 02/24/22 16:16 02/24/22 16:20 02/24/22 16:25 Temperature 97.8 F Pulse Rate 83 78 80 Respiratory Rate 18 Blood Pressure 133/82 124/64 Pulse Oximetry 98 02/24/22 16:26 02/24/22 16:28 02/24/22 16:46 Temperature Pulse Rate 79 108 H 82 Respiratory Rate 18 Blood Pressure 132/71 125/84 128/73 Pulse Oximetry 98 02/24/22 17:07 02/24/22 17:19 02/24/22 18:37 Temperature Pulse Rate 82 81 82 Respiratory Rate 18 18 16 Blood Pressure 119/71 129/73 Pulse Oximetry 98 100 100 02/24/22 19:52 02/24/22 20:00 02/24/22 20:09 Temperature 97.9 F Pulse Rate 67 70 81 Respiratory Rate 14 Blood Pressure 122/61 Pulse Oximetry 100 02/24/22 21:10 02/24/22 21:13 02/24/22 21:20 Temperature Pulse Rate Respiratory Rate Blood Pressure 118/57 L 139/66 125/69 Pulse Oximetry 02/24/22 22:35 02/24/22 22:40 02/25/22 00:00 Temperature Pulse Rate 58 L 76 Respiratory Rate Blood Pressure Pulse Oximetry 94 94 02/25/22 04:00 02/25/22 06:00 Temperature 98.
[2022-02-25] MEDS: MULTIVITAMINS /C LUTEIN (CENTRUM SILVER) TABLET *BKC 1 TAB PO (09:39)
[2022-02-25] MEDS: ENOXAPARIN 40 MG/0.4 ML SYRINGE SUB-Q (09:40)
[2022-02-25] MEDS: PANTOPRAZOLE 40 MG TABLET PO (09:40)
--- NOTE | 2022-02-25 13:44 | PM.DS ---
DS: Admitting Diagnosis Discharge Date 02/25/22 1500 Admitting Diagnosis Syncopal episode DS: Discharge Diagnosis Discharge Diagnosis (1) Syncope: Qualifiers: Syncope type: unspecified Qualified Code(s): R55 - Syncope and collapse Code(s): R55 - Syncope and collapse Status: Acute Assessment and Plan: Patient recently underwent gastric bypass surgery and reports syncopal episode where and he was walking across the room felt dizzy and lightheaded, and passed out. He has been eating a soft mechanical diet and trying to drink enough water, though it is likely he has not been drinking enough. Orthostatics were normal. WBC within normal limits, urine with 1+ ketones and 1+ bilirubin, and 4-6 white blood cells, not suspicious for infection. No significant electrolyte abnormalities aside from mild hypocalcemia. Mg and TSH WNL. He denies nausea, vomiting, Chest pain, shortness a breath, fevers, chills, abdominal pain. he endorses good urine output. -Chest x-ray showed no acute cardiopulmonary process -CT cervical spine showed no acute fracture or traumatic malalignment cervical spine -CT head showed no acute intracranial process with possible left maxillary acute sinusitis. -EKG showed normal sinus rhythm. -Carotid doppler showed <50% stenosis bilaterally. We have held his lisinopril HCTZ during his stay. he has been normotensive without this medication on board, and as such we will advise he continue to hold his lisinopril/ HCTZ until following up with his primary care provider in 1-2 weeks. Advised to take home blood pressure reads 3 times weekly and keep a diary to bring with him to his primary care provider. If he has another episode of dizziness, lightheadedness, syncope her worsening symptoms, contact his primary care provider or return here to be seen. (2) Acute kidney injury: Code(s): N17.9 - Acute kidney failure, unspecified Status: Acute Assessment and Plan: His creatinine has completely normalized from his admission creatinine of 1.8.BUN has improved from yesterday after 3 L IV bolus and IV fluids at 150 mL/hour. He has had sufficient urinary output. Advise patient to continue drinking plenty of fluids after discharge, being careful not to be come dehydrated, And prioritize fluid intake. (3) History of bariatric surgery: Code(s): Z98.84 - Bariatric surgery status Status: Acute Assessment and Plan: Gastric bypass at [facility] in January 2022; weight prior to surgery 404, currently 366 (38 lb weight loss). Low-fiber diet here and drink plenty of fluids. continue to follow-up with your surgeon as advised. (4) Essential hypertension: Code(s): I10 - Essential (primary) hypertension Status: Acute Assessment and Plan: patient has been normotensive during his stay here and his lisinopril HCTZ has been held at this time. With weight loss, he may potentially no longer need this medication. Do not take your lisinopril HCTZ Until you follow-up with your primary care provider. take ambulatory blood pressure readings at home, record these, and bring them to your primary care provider when he follow-up in 1-2 weeks. (5) DVT prophylaxis: Code(s): Z29.9 - Encounter for prophylactic measures, unspecified Status: Acute Assessment and Plan: Lovenox (6) VICKI (obstructive sleep apnea): Code(s): G47.33 - Obstructive sleep apnea (adult) (pediatric) Status: Acute Assessment and Plan: Treated with CPAP at home. continue CPAP usage DS: Summary Hospital Course Reason for hospitalization: syncope Hospital Course: See above for hospital course. Time Spent with Patient Time attestation: Total time spent providing and/or coordinating discharge services:25 Time spent: Less than 30 minutes Exam Narrative: GENERAL APPEARA
== END 2022-02-25 14:45 | disposition home or self-care (01) ==
LOC: ANHED 17:38 → ANH2MED 18:31
PROVIDERS: Admitting Provider Internal Medicine; Emergency Provider Emergency Medicine; PCP Family Medicine; Visit Provider Student in an Organized Health Care Education/Training Program
DX: N17.9 Acute kidney failure, unspecified (principal); R55 Syncope and collapse; I10 Essential (primary) hypertension; I65.23 Occlusion and stenosis of bilateral carotid arteries; G47.33 Obstructive sleep apnea (adult) (pediatric); E55.9 Vitamin D deficiency, unspecified; Z98.84 Bariatric surgery status; E66.01 Morbid (severe) obesity due to excess calories; Z68.42 Body mass index [BMI] 45.0-49.9, adult
CPT/HCPCS: 36415; 70450; 71045; 72125; 80048; 80053; 81001; 83735; 84443; 85025; 85610; 85730; 93005; 93880; 96360; 96361; 96372; 99215; 99285; A9270; G0378; G0463; J1650; J7030

== ENCOUNTER 2022-04-02 12:22 | Outpatient (CLI) | payer BC, SELFPAY ==
[2022-04-05 10:20] LABS: Testosterone Total 357 ng/dL (250-1100)
[2022-04-05 11:37] LABS: Testosterone Free 23.5 pg/mL (46.0-224.0)
== END 2022-04-02 12:23 | disposition home or self-care (01) ==
PROVIDERS: PCP Family Medicine; Visit Provider Internal Medicine Endocrinology, Diabetes & Metabolism
DX: E29.1 Testicular hypofunction (principal)
CPT/HCPCS: 36415; 84402; 84403

== ENCOUNTER 2022-07-25 13:18 | Outpatient (CLI) | payer BC, SELFPAY ==
[2022-07-25 18:52] LABS: Alanine Aminotransferase 20 U/L (6-50); Albumin Level 3.7 g/dL (3.5-5.1); Alkaline Phosphatase 81 U/L (38-126); Anion Gap 10 mmol/L (8-16); Aspartate Amino Transferase 47 U/L (17-59); Bilirubin,Total 0.6 mg/dL (0.2-1.3); Blood Urea Nitrogen 17 mg/dL (9-20); Calcium 9.2 mg/dL (8.4-10.2); Carbon Dioxide 27 mmol/L (22-30); Chloride 101 mmol/L (98-107); Estimated Glomerular Filt Rate > 60; Glucose 78 mg/dL (65-110); Potassium 4.3 mmol/L (3.4-5.0); Sodium 138 mmol/L (137-145)
[2022-07-25 19:05] LABS: Parathyroid Intact 43.8 pg/mL (7.5-53.5)
[2022-07-25 19:07] LABS: Prealbumin 14.8 mg/dL (17.6-36.0)
[2022-07-25 20:19] LABS: Iron 59 ug/dL (49-181); Percent Iron Saturation 14 % (20-50)
[2022-07-25 20:22] LABS: Vitamin D 25 Hydroxy 38.7 ng/mL
[2022-07-27 13:47] LABS: Red Blood Cell Folate 901 ng/mL RBC (>280)
[2022-07-27 20:37] LABS: Zinc 41 mcg/dL (60-130)
[2022-07-28 18:36] LABS: Alpha-Tocopherol 16.2 mg/L (5.7-19.9); Beta-Gamma Tocopherol 1.6 mg/L (<=4.3); Vitamin A 45 mcg/dL (38-98)
[2022-08-04 18:34] LABS: Vitamin K1 455 pg/mL (130-1500)
== END 2022-07-25 13:19 | disposition home or self-care (01) ==
PROVIDERS: PCP Family Medicine
DX: E66.01 Morbid (severe) obesity due to excess calories (principal); Z98.84 Bariatric surgery status; E56.9 Vitamin deficiency, unspecified; E55.9 Vitamin D deficiency, unspecified; E53.9 Vitamin B deficiency, unspecified; E61.8 Deficiency of other specified nutrient elements; K90.9 Intestinal malabsorption, unspecified
CPT/HCPCS: 36415; 80053; 82306; 82525; 82607; 82728; 82747; 83540; 83550; 83735; 83970; 84134; 84425; 84446; 84590; 84597; 84630

== ENCOUNTER 2022-11-05 17:09 | Emergency (ER) | payer BC, SELFPAY ==
[2022-11-05 17:17] VITALS: BP 136/80; PULSE 93; RESP 20; TEMP 37.2; O2SAT 100
--- NOTE | 2022-11-05 19:05 | ED.GENADULT ---
HPI - General Adult General Chief complaint: Unspecified Stated complaint: Exposed to COVID Time Seen by Provider: 11/05/22 19:06 Source: patient, RN notes reviewed and old records reviewed Mode of arrival: ambulatory Limitations: no limitations History of Present Illness HPI narrative: 52 year old male presents to [facility] care with complaints of some nasal congestion and drainage and minimal temperature elevation for the past 2 days. Patient reports that he has been exposed to COVID by his mother and sister. Patient reports that he has not had COVID vaccinations or any flu shot. MD complaint: nasal congestion and drainage exposure to COVID Onset (ago): day(s) (2) Treatments prior to arrival: none Related Data Home Medications Medication Instructions Recorded Confirmed [id number] 45 mg-folic 1 cap PO DAILY 02/24/22 08/14/22 acid 800 mcg-vit K 120 mcg capsule (Bariatric Multivitamins) Allergies Allergy/AdvReac Type Severity Reaction Status Date / Time No Known Allergies Allergy Verified 07/12/22 15:21 Review of Systems Review of Systems: CONSTITUTIONAL:Minimal fever, no chills, or sweats. EYES: Denies visual changes, redness, or discharge. ENT: Reports rhinorrhea, congestion, no sore throat, or otalgia. CARDIOVASCULAR: Denies chest pain, palpitations, or edema. RESPIRATORY: Denies cough or dyspnea. GASTROINTESTINAL: Denies abdominal pain, nausea, vomiting, or diarrhea. GENITOURINARY: Denies dysuria or hematuria. SKIN: Denies rash or itching. MUSCULOSKELETAL: Denies back pain, joint pain, or myalgia. NEUROLOGIC: Denies headache, numbness, or weakness. PSYCHIATRIC: Denies anxiety or depression. All systems reviewed & are unremarkable except as noted in HPI and below PMFSH Past Medical History Medical History BMI greater than 40 COVID-19 (~10/2021) Essential hypertension History of frequent headaches Low testosterone in male Migraines VICKI (obstructive sleep apnea) Screening for colon cancer 03/2021 normal cologard hx Screening PSA (prostate specific antigen) 04/03/2021 psa ordered Vitamin D deficiency Surgical History Surgical History History of gastric bypass (01/16/22) Weight prior to bypass 427 lb Family History Family History Father , At age 82 Hypertension Lung cancer Mother Hypertension Sibling Thyroid disorder Grandparent Lung cancer Heart problem Social History Social History Social History: The patient is single and has never been . 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 He is a lifelong nonsmoker. He only rarely drink alcohol prior to his bypass procedure. Code status: Full code Surrogate decision maker: Shweta (sister) Smoking status: Never smoker Alcohol intake: former Drinks per week: 1 Substance use: never Substance use type: does not use Spiritual care concerns: No Comments At time of signature, agree with nursing past medical, surgical, social and family history. There is no relevant family history pertinent to the presenting complaint Exam Narrative: GENERAL: Well-appearing, well-nourished, and in no acute distress. HEAD: Normocephalic, atraumatic. EYES: PERRLA and EOMI. ENT: Nares clear, scant clear rhinorrhea no epistaxis. Mucous membranes moist.TM's normal with good light reflex, throat pink with no lesions or swelling NECK: Supple.no lymphadenopathy CHEST: Clear to auscultation. No respiratory distress. no cough noted SAO2 100% on room air HEART: Regular rate and rhythm. No murmur heard. Normal peripheral pulses. ABDOMEN: Soft, nontender, nondistended, normal active bowel sounds. EXTREMITIES: Normal range of motion. No edema. SKIN: Warm, dry, no rash. NEURO: No focal defic
== END 2022-11-05 19:28 | disposition home or self-care (01) ==
PROVIDERS: Emergency Provider Registered Nurse; PCP Family Medicine
DX: R09.81 Nasal congestion (principal); Z20.822 Contact with and (suspected) exposure to COVID-19; I10 Essential (primary) hypertension
CPT/HCPCS: 87426; 99213; C9803; G0463

== ENCOUNTER 2022-11-10 13:36 | Emergency (ER) | payer BC, SELFPAY ==
--- NOTE | ~2022-11-10 | XR_ITS ---
EXAMINATION: XR hip RT min 2V DATE: 11/10/2022 14:14 INDICATION: Right hip pain. TECHNIQUE: 2 views of right hip were obtained. COMPARISON: None. FINDINGS: Bone alignment is normal. No fracture. There is mild right hip osteoarthritis. IMPRESSION: 1. Mild right hip osteoarthritis. Reviewed, dictated and finalized at location A. DESK SUPERVISOR
[2022-11-10 13:44] VITALS: BP 147/75; PULSE 66; RESP 16; TEMP 37.1; O2SAT 100
--- NOTE | 2022-11-10 13:59 | ED.EXTPRO ---
HPI - Extremity Problem General Chief complaint: Extremity Problem,Nontraumatic Stated complaint: Right Hip Pain Time Seen by Provider: 11/10/22 13:53 History of Present Illness HPI Narrative: 52-year-old male here for evaluation of right hip pain over the past day. Patient states the pain is sharp and stabbing, located in his lateral thigh. Patient denies obvious injury or increased exertion. He has not attempted any medicine for his pain but attempted ice and topical numbing gel without relief. Denies history of previous similar sensation. Related Data Home Medications Medication Instructions Recorded Confirmed [id number] 45 mg-folic 1 cap PO DAILY 02/24/22 08/14/22 acid 800 mcg-vit K 120 mcg capsule (Bariatric Multivitamins) Allergies Allergy/AdvReac Type Severity Reaction Status Date / Time No Known Allergies Allergy Verified 07/12/22 15:21 Review of Systems Review of Systems: Gen: Denies fevers or chills Eyes: Denies eye pain or visual change ENT: Denies congestion Respiratory: Denies shortness of breath or cough CV: Denies chest pain or palpitations GI: Denies abdominal pain nausea, emesis or diarrhea : denies burning, urgency, frequency or hematuria Musculoskeletal: right hip pain. Neuro: Denies numbness, tingling, weakness or focal weakness Skin: Denies rash Except as documented, all other systems reviewed and negative [facility] Past Medical History Medical History BMI greater than 40 COVID-19 (~10/2021) Essential hypertension History of frequent headaches Low testosterone in male Migraines VICKI (obstructive sleep apnea) Screening for colon cancer 03/2021 normal cologard hx Screening PSA (prostate specific antigen) 04/03/2021 psa ordered Vitamin D deficiency Surgical History Surgical History History of gastric bypass (01/16/22) Weight prior to bypass 427 lb Family History Family History Father , At age 82 Hypertension Lung cancer Mother Hypertension Sibling Thyroid disorder Grandparent Lung cancer Heart problem Social History Social History Social History: The patient is single and has never been . 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 He is a lifelong nonsmoker. He only rarely drink alcohol prior to his bypass procedure. Code status: Full code Surrogate decision maker: Shweta (sister) Smoking status: Never smoker Alcohol intake: former Drinks per week: 1 Substance use: never Substance use type: does not use Spiritual care concerns: No Exam Narrative: Gen: alert, oriented no acute distress Eyes: EOMI, no icterus Pulm: Respirations even and unlabored, symmetric thorax expansion, no audible stridor or visible cyanosis CV: Regular rate per telemetry GI: No distension, no voluntary/involuntary guarding Neuro: AOx4, moves all extremities without apparent difficulty or weakness, follows commands MSK: no tenderness to palpation along ITB. full range of motion in right lower extremity. +REMI test. Full range of motion in the right lower extremity, no bony tenderness to palpation of right knee or hip. Normal gait. Skin: No jaundice, no visible bruising, rashes, lesions or wounds on exposed skin Psych: Normal mood/affect, insight/judgement good, adequate fund of knowledge, recent/remote memory intact Course Vital Signs Vital signs: Vital Signs Temperature 98.8 F 11/10/22 13:44 Pulse Rate 66 11/10/22 13:44 Respiratory Rate 16 11/10/22 13:44 Blood Pressure 147/75 H 11/10/22 13:44 Pulse Oximetry 100 11/10/22 13:44 Oxygen Delivery Room Air 11/10/22 13:44 Temperature 98.8 F 11/10/22 13:44 Pulse Rate 66 11/10/22 13:44 Respiratory Rate 16
[2022-11-10] MEDS: ACETAMINOPHEN 325 MG TABLET 650 MG PO (14:21)
[2022-11-10] MEDS: LIDOCAINE 5% PATCH 1 PATCH TRANSDERM (14:22)
== END 2022-11-10 15:20 | disposition home or self-care (01) ==
PROVIDERS: Emergency Provider Emergency Medicine; PCP Family Medicine
DX: M16.11 Unilateral primary osteoarthritis, right hip (principal); Z86.16 Personal history of COVID-19; G47.30 Sleep apnea, unspecified; I10 Essential (primary) hypertension
CPT/HCPCS: 73502; 99283; A9270

== ENCOUNTER 2022-11-16 08:53 | Outpatient (CLI) | payer BC, SELFPAY ==
--- NOTE | ~2022-11-16 | US_ITS ---
Ultrasound of the right groin CLINICAL HISTORY: Mass TECHNIQUE: Real-time sonographic imaging of the right groin performed at the area of palpable concern . FINDINGS: The right groin region, there is a prominent hypoechoic lymph node measuring 3.0 x 1.4 x 0. 6 cm in size, with prominent fatty hilum. Additional lymph node measures 3.0 x 1.5 x 0.7 cm in size, again with fatty hilum. Several additional mildly prominent lymph nodes are also present. No hernia evident. IMPRESSION: Prominent right inguinal region lymph nodes, as detailed above. These are likely reactive/inflammator y in nature. Correlate clinically. Clinical follow-up advised. Tissue sampling could be considered as clinically warranted. Reviewed, dictated and finalized at location M. ORT ELECTRICIAN IMPRESSION: Prominent right inguinal region lymph nodes, as detailed above. These are likel y reactive/inflammatory in nature. Correlate clinically. Clinical follow-up adv ised. Tissue sampling could be considered as clinically warranted.
== END 2022-11-16 08:54 | disposition home or self-care (01) ==
PROVIDERS: PCP Family Medicine; Visit Provider Family Medicine
DX: R19.00 Intra-abdominal and pelvic swelling, mass and lump, unspecified site (principal)
CPT/HCPCS: 76882

== ENCOUNTER 2022-11-19 11:28 | Outpatient (CLI) | payer BC, SELFPAY ==
[2022-11-19 21:32] LABS: Basophils Percent Auto 0.9 % (0.2-1.2); Eosinophils Absolute Auto 0.2 K/mm3 (0-0.3); Eosinophils Percent Auto 4.9 % (0-4.4); Hematocrit 38.7 % (42.0-52.0); Hemoglobin 11.8 g/dL (14.0-18.0); Immature Granulocyte Absolute 0.01 K/mm3 (0.00-0.031); Immature Granulocyte Percent A 0.2 % (0-0.5); Lymphocytes Absolute Auto 0.96 K/mm3 (0.9-3.2); Lymphocytes Percent Auto 22.3 % (18.3-44.2); Mean Corpuscular HGB Conc 30.5 g/dl (32-36); Mean Corpuscular Hemoglobin 27.5 pg (26-34); Mean Corpuscular Volume 90.2 fl (80-100); Mean Platelet Volume 11.8 fl (7.4-10.4); Monocytes Absolute Auto 0.3 K/mm3 (0.1-0.6); Monocytes Percent Auto 6.5 % (2.6-8.5); Neutrophils Absolute Auto 2.8 K/mm3 (1.3-6.7); Neutrophils Percent Auto 65.2 % (45.5-73.1); Platelet Count Result 306 k/mm3 (150-375); Red Blood Count 4.29 M/mm3 (4.6-6.20); Red Cell Distribution Width 14.9 % (11.5-14.5); White Blood Count 4.3 K/mm3 (4.5-10.0)
[2022-11-19 21:34] LABS: Albumin Level 4.1 g/dL (3.5-5.1)
[2022-11-20 10:16] LABS: Rapid Plasma Reagin Non-Reactive (NonReactive)
[2022-11-22 09:00] LABS: HIV 1 2 Ag Ab 4th Gen w Rflxs Non-reactive (Non-reactive)
[2022-11-23 14:06] LABS: Sex Hormone Binding Globulin 71 nmol/L (10-50)
[2022-11-23 18:55] LABS: Testosterone Free 41.7 pg/mL (46.0-224.0); Testosterone Total 588 ng/dL (250-1100)
== END 2022-11-19 11:29 | disposition home or self-care (01) ==
LOC: ANHBWCLAB 11:31
PROVIDERS: PCP Family Medicine; Visit Provider Internal Medicine Endocrinology, Diabetes & Metabolism
DX: R59.0 Localized enlarged lymph nodes (principal); E29.1 Testicular hypofunction
CPT/HCPCS: 36415; 82040; 84270; 84402; 84403; 85025; 86592; 87389; 87491; 87591

== ENCOUNTER 2022-12-19 14:24 | Outpatient (CLI) | payer BC, SELFPAY ==
--- NOTE | ~2022-12-19 | CT_ITS ---
Non-contrast CT scan of the Pelvis Clinical indication: Right inguinal swelling Technique: 2.5 mm axial scans were obtained through the pelvis without intravenous or oral contrast. Dose reduction technique was used on this scan by utilizing automated exposure control and iterative reconstruction technique. The dose-length product (DLP) was 735.35 mGy-cm. Findings: Visualized bowel loops are unremarkable. No evidence of bowel obstruction. No ascites. Urin alyssia bladder unremarkable. Prostate gland and seminal vesicles are unremarkable. Bilateral L5 pars interarticularis defects are noted, with 11 mm anterolisthesis of L5 over S1.. No s oft tissue mass or fluid collection seen. Small bilateral fat-containing inguinal hernias are present , right larger than left. Impression: Small bilateral fat-containing inguinal hernias, right greater than left. Bilateral L5 pars interarticularis defects, with 11 mm anterolisthesis of L5 over S1. Reviewed, dictated and finalized at [facility]. B THERAPIST Impression: Small bilateral fat-containing inguinal hernias, right greater than left. Bilateral L5 pars interarticularis defects, with 11 mm anterolisthesis of L5 ov er S1.
== END 2022-12-19 14:25 | disposition home or self-care (01) ==
PROVIDERS: PCP Family Medicine; Visit Provider Family Medicine
DX: M79.89 Other specified soft tissue disorders (principal); K40.20 Bilateral inguinal hernia, without obstruction or gangrene, not specified as recurrent
CPT/HCPCS: 72192

== ENCOUNTER 2023-01-16 08:12 | Outpatient (CLI) | payer BC, SELFPAY | END 2023-01-16 08:13 | disposition home or self-care (01) | LOC: ANHSURGERY 08:16 | PROVIDERS: PCP Family Medicine; Visit Provider Surgery | DX: K40.90 Unilateral inguinal hernia, without obstruction or gangrene, not specified as recurrent (principal) | CPT/HCPCS: 36415; 86850; 86900; 86901 ==

== ENCOUNTER 2023-01-22 00:48 | Day surgery (SDC) | payer BC, SELFPAY ==
[2023-01-15 12:38] VITALS: BMI 30.2
--- NOTE | 2023-01-15 12:43 | PC.NURSE ---
Report to the Outpatient Waiting Room, entrance under the green pavilion located off [facility], at time 6:30 on date 01/22/23. Planned Procedure Time: 8:30. Time changes happen often and if your time is changed the preop area will call you the afternoon before. - You and your visitor will be asked to self-screen and do not enter if you have any COVID symptoms. - Only one visitor is requested with a max of two and NO children visitors are allowed at this time. - The patient visitor may be requested to leave or wait in car when not with patient due to distancing restrictions. - A mask is optional within the hospital at this time. Patients may have clear liquids (water, carbonated beverages, clear teas, apple juice) until 3 hours prior to surgery (5:30) with a maximum of 20 ounces. - No food from midnight until time of surgery Take the following medications with a SIP of water the morning of surgery: NONE DO NOT STOP ANY OF YOUR OTHER PRESCRIPTION MEDICATIONS PRIOR TO SURGERY EXCEPT THE FOLLOWING Medications to discontinue per physician: VITAMINS/SUPPLEMENTS Date to take last dose: 01/18/23 Please no make-up, nail malawian, hairspray, perfume, deodorant, or body powder the day of surgery. No jewelry (including any body piercings) or valuables the day of surgery, leave them at home. Please take a shower or bath the night before, or the morning of, surgery with an antibacterial soap (HIBICLENS). Wear comfortable, loose fitting clothing. - Jewelry must be removed prior to entering the operating room. Rings and piercings that are not removed may be cut off. - The hospital will not accept responsibility for valuables. - Please leave all valuables, including medications, at home the day of surgery. If you are going home after surgery, a licensed lease purchase driver must drive you home. - NO public transportation without another adult if you receive anesthesia. - We recommend that an adult stay with you for 24 hours following discharge. - We also recommend that you do not drive, make important decision, drink alcoholic beverages, or take any drugs that were not prescribed by your health care provider for at least 24 hours after your discharge time. Follow any additional instructions given to you from your surgeon. If you or anyone in your household have experienced Covid symptoms in the past week, please notify your surgeon or the nurse liaison at the phone number below for possible testing. Telephone instructions given to AARTI GARRIDO and asked if any additional questions and then verbalized understanding. Patient advised to call surgeon office or pre surgery nurse liaison [phone] if any additional questions.
[2023-01-22] VITALS (12 sets, daily range): BP systolic 108–138; BP diastolic 64–77; PULSE 44–79; RESP 12–17; TEMP 36.6–36.9; O2SAT 100
--- NOTE | 2023-01-22 06:48 | WPDANESEPPF ---
Anes - Initial Pre Proc Eval Procedure: Operation Date: 01/22/23 08:30 Proposed Procedures p Laparoscopic Right Inguinal Hernia Repair with Mesh, Davinci Assisted - Sherif Wilson DO Date/Time: 01/22/23 06:48 Surgeon: Sherif Wilson DO Pre Op Diagnosis: right inguinal hernia Patient Data Age: 52 Gender: M Height: 1.88 m Weight: 106.6 kg Allergies Allergy/AdvReac Type Severity Reaction Status Date / Time No Known Allergies Allergy Verified 01/15/23 12:37 Home Medications Medication Instructions Recorded Confirmed Type afxennex-mdhrvsqh-qazw 45 mg-folic 1 cap PO DAILY 02/24/22 01/15/23 History acid 800 mcg-vit K 120 mcg capsule (Bariatric Multivitamins) ascorbic acid (vitamin C) 500 mg 500 mg PO DAILY 01/15/23 01/15/23 History tablet (Vitamin C) calcium carbonate 600 mg calcium 600 mg PO DAILY 01/15/23 01/15/23 History (1,500 mg) tablet (Calcium) Patient hx anesthesia problems: none Family hx anesthesia problems: none Results Review: All pre-operative results and documents have been reviewed as part of the pre-operative evaluation. [facility] Past Medical History Medical History BMI greater than 40 COVID-19 (~10/2021) Essential hypertension History of frequent headaches Low testosterone in male Migraines VICKI (obstructive sleep apnea) Screening for colon cancer 03/2021 normal cologard hx Screening PSA (prostate specific antigen) 04/03/2021 psa ordered Vitamin D deficiency Surgical History Surgical History History of dental surgery [place] [facility] History of gastric bypass (01/16/22) Weight prior to bypass 427 lb Family History Family History Father , At age 82 Hypertension Lung cancer Mother Hypertension Sibling Thyroid disorder Grandparent Lung cancer Heart problem Social History Social History Social History: The patient is single and has never been . 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 He is a lifelong nonsmoker. He only rarely drink alcohol prior to his bypass procedure. Code status: Full code Surrogate decision maker: Shweta (sister) Smoking status: Never smoker Alcohol intake: never Drinks per week: 1 Substance use: never Substance use type: does not use Lack of Transportation: No Lack of Food: Never True Current Housing: I Have Housing Concerned About Future Housing: No Difficulty Paying Gas/Electric Bills: No Difficulty Paying for Meds: No Currently Unemployed: No Education: High School Diploma/GED Difficulty w/ Childcare or Family Care: No Living arrangements: with family Additional living arrangements comments: MOM Spiritual care concerns: No Anes - Eval Final PreProcedure Day of Procedure 01/22/23 06:48 Patient weight: obese Heart: regular rate and rhythm Lungs: clear to auscultation Airway: Mallampati scale class II Neurological: alert and oriented Last oral intake: >/= 8 hours ASA classification: III Emergent: no Anesthetic plan: proceed Anesthesia type and monitoring: general ETT and standard monitoring Results Review: All pre-operative results and documents have been reviewed as part of the pre-operative evaluation. Informed Consent: The patient's anesthetic plan and its attendant risks and benefits were discussed with the patient/family/POA. Questions were solicited and answers provided to the satisfaction of the patient/family/POA.
[2023-01-22] MEDS: ACETAMINOPHEN 500 MG TABLET 1000 MG PO (06:49)
[2023-01-22] MEDS: KETOROLAC 15 MG/ML VIAL (*BKC) IV PUSH (06:50)
[2023-01-22] MEDS: LACTATED RINGERS 1,000 ML 30 ML IV CONT ×2 (06:58→09:41)
--- NOTE | 2023-01-22 07:17 | WPDHPUPDATE1 ---
History and Physical Update Update Date/Time: 01/22/23 07:17 History and Physical has been reviewed, including an updated exam of the patient. There are NO changes in the patient's condition. Risks, benefits, and alternatives have been discussed and questions answered. Patient agrees to proceed with procedure.
--- NOTE | 2023-01-22 07:17 | PM.IMHP ---
H&P: HPI History of Present Illness Date/Time: 01/22/23 07:17 Chief Complaint: right inguinal hernia Narrative: 52 yo man presents for WIH repair. He denies any changes since last seen in office. Review of Systems Review of Systems: All systems reviewed & are unremarkable except as noted in HPI and below Constitutional: Constitutional: Denies chills, Denies fever(s), Denies headache(s) and Denies weight loss Eyes: Eyes: Denies change in vision ENT: Denies dizziness, Denies headache(s), Denies neck mass and Denies throat swelling Cardiovascular: Cardiovascular: Denies chest pain, Denies lightheadedness and Denies dyspnea Respiratory: Respiratory: Denies cough, Denies dyspnea and Denies wheezing Gastrointestinal: Gastrointestinal: Denies abdominal pain, Denies change in bowel habits, Denies nausea and Denies vomiting Genitourinary: Genitourinary: Denies hematuria and Denies dysuria Musculoskeletal: Musculoskeletal: Reports as per HPI Integumentary/Breasts: Skin/Breast: Reports as per HPI Neurologic: Denies dizziness and Denies headache(s) Allergic/Immunologic: Allergic/Immunologic: Denies throat swelling and Denies wheezing PMFSH Past Medical History Medical History BMI greater than 40 COVID-19 (~10/2021) Essential hypertension History of frequent headaches Low testosterone in male Migraines VICKI (obstructive sleep apnea) Screening for colon cancer 03/2021 normal cologard hx Screening PSA (prostate specific antigen) 04/03/2021 psa ordered Vitamin D deficiency Surgical History Surgical History History of dental surgery [place] [facility] History of gastric bypass (01/16/22) Weight prior to bypass 427 lb Family History Family History Father , At age 82 Hypertension Lung cancer Mother Hypertension Sibling Thyroid disorder Grandparent Lung cancer Heart problem Social History Social History Social History: The patient is single and has never been . 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 He is a lifelong nonsmoker. He only rarely drink alcohol prior to his bypass procedure. Code status: Full code Surrogate decision maker: Shweta (sister) Smoking status: Never smoker Alcohol intake: never Drinks per week: 1 Substance use: never Substance use type: does not use Lack of Transportation: No Lack of Food: Never True Current Housing: I Have Housing Concerned About Future Housing: No Difficulty Paying Gas/Electric Bills: No Difficulty Paying for Meds: No Currently Unemployed: No Education: High School Diploma/GED Difficulty w/ Childcare or Family Care: No Living arrangements: with family Additional living arrangements comments: MOM Spiritual care concerns: No Meds Home Medications and Allergies Home Medications Medication Instructions Recorded Confirmed Type xdyncwle-ugvjhlms-dvka 45 mg-folic 1 cap PO DAILY 02/24/22 01/15/23 History acid 800 mcg-vit K 120 mcg capsule (Bariatric Multivitamins) ascorbic acid (vitamin C) 500 mg 500 mg PO DAILY 01/15/23 01/15/23 History tablet (Vitamin C) calcium carbonate 600 mg calcium 600 mg PO DAILY 01/15/23 01/15/23 History (1,500 mg) tablet (Calcium) Allergies Allergy/AdvReac Type Severity Reaction Status Date / Time No Known Allergies Allergy Verified 01/15/23 12:37 Exam Const: General: no acute distress and alert Orientation/consciousness: patient oriented x3 HENMT: Head: normocephalic and atraumatic Ears: hearing grossly normal bilaterally Face/Nose/Sinus: Normal nares present Mouth: Yes Normal oral and palatal mucosa present Eyes: Periorbital: periorbital findings normal Sclera: sclerae normal EOM: EOMs intact bilaterally N
[2023-01-22] MEDS: ceFAZolin 2 GM/D5W 50 ML 2 GM/50 ML BAG IVPB (08:21)
[2023-01-22] MEDS: BUPIVACAINE/EPINEPHRINE 0.25% 50 ML VIAL 30 ML INFILTRATE (08:52)
--- NOTE | 2023-01-22 09:35 | W.PM.PROC2 ---
Procedure Note - Detailed Date of Procedure 01/22/23 Pre-op Diagnosis right inguinal hernia Post-op Diagnosis Same (Indirect RIH) Procedure Performed Laparoscopic right inguinal hernia repair with mesh, da Nimo assisted Surgeon Sherif Wilson, Anesthesia General and Local (0.5% bupivacaine with epinephrine) Indications This is a 52-year-old man who noticed a right groin bulge and slight discomfort about 2 months ago. He does not recall any specific activity or injury that could have caused this. He was found to have a reducible right inguinal hernia on physical exam. Discussions were made with the patient about treatment options and decision was made to proceed with robotic assisted laparoscopic right hernia repair with mesh. Findings Laparoscopic right inguinal hernia repair was performed. Patient was found to have a moderate-sized indirect right inguinal hernia. The hernia sac was reduced and a robotic transabdominal preperitoneal approach was utilized. Once a wide enough preperitoneal pocket was created, I then placed a large right Bard 3DMax mid mesh. No specimens were obtained for pathology. Description of Procedure Procedure as well as risks, benefits, and alternatives were discussed with the patient. Written consent was obtained and placed in chart prior to procedure. Patient was brought back to surgical suite. He was placed supine on operating table. Time-out was done to confirm patient and procedure. He was then intubated by Anesthesia Department. His abdomen was prepped and draped in sterile fashion using chlorhexidine prep. 0.5% bupivacaine with epinephrine was infiltrated at each location for incision. An 8 mm incision was made in the left lateral abdomen, and a 5 mm Optiview trocar was advanced through the abdominal layers under direct visualization. Once inside the abdominal cavity, carbon dioxide insufflation was used to create a pneumoperitoneum. A camera was inserted and the abdominal cavity was inspected. The patient was placed in slight Trendelenburg position. An 8 millimeter incision was made on the right lateral abdomen and an 8 millimeter trocar was inserted under direct visualization. Another 8 millimeter incision was made just superior to the umbilicus and an 8 millimeter trocar was inserted under direct visualization. The 5 mm port was then removed and this was replaced with another 8 mm robotic port. The robotic arms were brought up to the patient's bedside and secured to the ports. The camera and instruments were inserted. I then moved over to the robotic console and took control of the camera and instruments. After careful inspection of the abdominal cavity, I began scoring the peritoneum along the right lower quadrant using scissors with electrocautery. The preperitoneal plane was entered and this was carefully dissected caudally along the inferior epigastric vessels. Careful dissection with scissors with electrocautery and blunt dissection was used to continue this dissection. I dissected far enough laterally to allow for mesh placement, and also dissected medially to identify the pubic arch and Rg's ligament. The hernia sac was identified and carefully dissected posteriorly. The cord contents were also identified and the peritoneum was carefully dissected far enough posteriorly to allow for mesh placement. Once an adequate pocket was created, I then placed the mesh within the preperitoneal pocket and carefully unfolded it. The mesh was centered on the hernia defect with adequate overlap circumferentially. The inferior edge of the mesh was inspected to ensure that it was far enough away from the peritoneal edge. The mesh appeared in proper position overlying the entire myopectineal orifice. The mesh was secured using 3-0 Vicryl simple interrupted sutures in Rg's ligament, the superior medial edge, and superior lateral edge of the mesh. The peritoneum was then closed over the mesh using a 3-0 V-lock
[2023-01-22] MEDS: fentaNYL CITRATE INJ (*CRX) 100 MCG/2 ML VIAL 25 MCG IV PUSH ×3 (10:10→10:45)
[2023-01-22] MEDS: oxyCODONE HCL (*CRX) 5 MG TAB IR PO (11:18)
== END 2023-01-22 13:00 | disposition home or self-care (01) ==
PROVIDERS: PCP Family Medicine; Visit Provider Surgery
PROC: 8E0Y4CZ Robotic Assisted Procedure of Lower Extremity, Percutaneous Endoscopic Approach (ICD-10-PCS; CPT 49650; principal; 2023-01-22 08:30)
DX: K40.90 Unilateral inguinal hernia, without obstruction or gangrene, not specified as recurrent (principal); I10 Essential (primary) hypertension; G47.33 Obstructive sleep apnea (adult) (pediatric); E55.9 Vitamin D deficiency, unspecified
CPT/HCPCS: 49650; S2900; A9270; C1781; J0690; J1100; J1170; J1885; J2250; J2405; J2704; J3010; J7120

== ENCOUNTER 2023-02-12 15:01 | Outpatient (CLI) | payer BC, SELFPAY ==
[2023-02-12 17:07] LABS: Albumin Level 3.8 g/dL (3.5-5.1)
[2023-02-16 03:53] LABS: Sex Hormone Binding Globulin 66 nmol/L (10-50)
[2023-02-16 13:10] LABS: Testosterone Free 26.5 pg/mL (46.0-224.0); Testosterone Total 365 ng/dL (250-1100)
== END 2023-02-12 15:02 | disposition home or self-care (01) ==
LOC: ANHWCLAB 15:02
PROVIDERS: PCP Family Medicine; Visit Provider Internal Medicine Endocrinology, Diabetes & Metabolism
DX: E29.1 Testicular hypofunction (principal)
CPT/HCPCS: 36415; 82040; 84270; 84402; 84403

== ENCOUNTER 2023-11-01 13:11 | Outpatient (CLI) | payer BC, SELFPAY ==
--- NOTE | 2023-11-01 13:30 | ECG_ITS ---
Measurements Intervals [place] Rate: 60 P: 53 WV: 158 QRS: 57 QRSD: 116 T: 35 QT: 394 QTc: 394 Interpretive Statements SINUS RHYTHM POOR R-WAVE PROGRESSION BORDERLINE ECG COMPARED TO ECG 02/24/2022 16:21:34 NO DIFFERENCE Electronically Signed On 11-01-2023 15:24:39 [employer] by Beto Powell M.D.
== END 2023-11-01 13:12 | disposition home or self-care (01) ==
LOC: ANHSURGERY 13:15
PROVIDERS: PCP Family Medicine; Visit Provider Surgery
DX: K40.90 Unilateral inguinal hernia, without obstruction or gangrene, not specified as recurrent (principal); I10 Essential (primary) hypertension; Z01.818 Encounter for other preprocedural examination
CPT/HCPCS: 36415; 86850; 86900; 86901; 93005

== ENCOUNTER 2023-11-12 00:39 | Day surgery (SDC) | payer BC, SELFPAY ==
[2023-10-30 12:40] VITALS: BMI 28.9
--- NOTE | 2023-10-30 12:46 | PC.NURSE ---
Report to the Outpatient Waiting Room, entrance under the green pavilion located off [facility], at time _0930_ on date _[id number]_. Planned Procedure Time: _1130_. Time changes happen often and if your time is changed the preop area will call you the afternoon before. - You and your visitor will be asked to self-screen and do not enter if you have any COVID symptoms. - A mask is optional within the hospital at this time. Patients may have clear liquids (water, carbonated beverages, clear teas, apple juice) until 3 hours prior to surgery with a maximum of 20 ounces. - No food from midnight until time of surgery Take the following medications with a SIP of water the morning of surgery: ___None DO NOT STOP ANY OF YOUR OTHER PRESCRIPTION MEDICATIONS PRIOR TO SURGERY ?EXCEPT THE FOLLOWING Medications to discontinue per physician All vitamins Date to take last wupp__[id number] Please no make-up, nail ivorian, hairspray, perfume, deodorant, or body powder the day of surgery. No jewelry (including any body piercings) or valuables the day of surgery, leave them at home. Please take a shower or bath the night before, or the morning of, surgery with an antibacterial soap. Wear comfortable, loose fitting clothing. - Jewelry must be removed prior to entering the operating room. Rings and piercings that are not removed may be cut off. - The hospital will not accept responsibility for valuables. - Please leave all valuables, including medications, at home the day of surgery. If you are going home after surgery, a licensed motor bus driver must drive you home. - NO public transportation without another adult if you receive anesthesia. - We recommend that an adult stay with you for 24 hours following discharge. - We also recommend that you do not drive, make important decision, drink alcoholic beverages, or take any drugs that were not prescribed by your health care provider for at least 24 hours after your discharge time. Follow any additional instructions given to you from your surgeon. If you or anyone in your household have experienced Covid symptoms in the past week, please notify your surgeon or the nurse liaison at the phone number below for possible testing. Telephone instructions given to __Yandel__and asked if any additional questions and then verbalized understanding. Patient advised to call surgeon office or pre surgery nurse liaison [phone] if any additional questions.
[2023-11-12] VITALS (8 sets, daily range): BP systolic 114–146; BP diastolic 63–86; PULSE 47–74; RESP 12–18; TEMP 36.4–36.6; O2SAT 97–100
[2023-11-12] MEDS: LACTATED RINGERS 1,000 ML 30 ML IV CONT ×2 (09:30→12:34)
[2023-11-12] MEDS: ACETAMINOPHEN 500 MG TABLET 1000 MG PO (09:50)
[2023-11-12] MEDS: KETOROLAC 15 MG/ML VIAL (*BKC) IV PUSH (09:50)
--- NOTE | 2023-11-12 10:43 | WPDHPUPDATE1 ---
History and Physical Update Update Date/Time: 11/12/23 10:43 History and Physical has been reviewed, including an updated exam of the patient. There are NO changes in the patient's condition. Risks, benefits, and alternatives have been discussed and questions answered. Patient agrees to proceed with procedure.
--- NOTE | 2023-11-12 10:43 | PM.IMHP ---
H&P: HPI History of Present Illness Date/Time: 11/12/23 10:43 Chief Complaint: Left inguinal hernia Narrative: This is a 53-year-old man who presents for left inguinal hernia repair. He reports no changes since last seen in the office. Review of Systems Review of Systems: All systems reviewed & are unremarkable except as noted in HPI and below Constitutional: Constitutional: Denies chills, Denies fever(s), Denies headache(s) and Denies weight loss Eyes: Eyes: Denies change in vision ENT: Denies dizziness, Denies headache(s), Denies neck mass and Denies throat swelling Cardiovascular: Cardiovascular: Denies chest pain, Denies lightheadedness and Denies dyspnea Respiratory: Respiratory: Denies cough, Denies dyspnea and Denies wheezing Gastrointestinal: Gastrointestinal: Denies abdominal pain, Denies change in bowel habits, Denies nausea and Denies vomiting Genitourinary: Genitourinary: Denies hematuria and Denies dysuria Musculoskeletal: Musculoskeletal: Reports as per HPI Integumentary/Breasts: Skin/Breast: Reports as per HPI Neurologic: Denies dizziness and Denies headache(s) Allergic/Immunologic: Allergic/Immunologic: Denies throat swelling and Denies wheezing PMFSH Past Medical History Medical History (Updated 10/11/23 @ 09:29 by Maricarmen Nation) BMI greater than 40 COVID-19 (~10/2021) Essential hypertension History of frequent headaches Low testosterone in male Migraines VICKI (obstructive sleep apnea) Screening for colon cancer 03/2021 normal cologard hx Screening PSA (prostate specific antigen) 04/03/2021 psa ordered Vitamin D deficiency Surgical History Surgical History (Updated 10/11/23 @ 09:29 by Maricarmen Nation) H/O inguinal hernia repair LAP right inguinal hernia repair with mesh da kash assisted on 01/22/23. History of dental surgery [place] [facility] History of gastric bypass (01/16/22) Weight prior to bypass 427 lb Family History Family History Father , At age 82 Hypertension Lung cancer Mother Hypertension Sibling Thyroid disorder Grandparent Lung cancer Heart problem Social History Social History Social History: The patient is single and has never been . 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 He is a lifelong nonsmoker. He only rarely drink alcohol prior to his bypass procedure. Code status: Full code Surrogate decision maker: Shweta (sister) Smoking status: Never smoker Alcohol intake: current Drinks per week: 1 Substance use: never Substance use type: does not use Lack of Transportation: No Lack of Food: Never True Current Housing: I Have Housing Concerned About Future Housing: No Difficulty Paying Gas/Electric Bills: No Difficulty Paying for Meds: No Currently Unemployed: No Education: High School Diploma/GED Difficulty w/ Childcare or Family Care: No Living arrangements: with family Additional living arrangements comments: MOM Spiritual care concerns: No Meds Home Medications and Allergies Home Medications Medication Instructions Recorded Confirmed Type wzqearma-drtmjhuo-euav 45 mg-folic 1 cap PO DAILY 02/24/22 11/12/23 History acid 800 mcg-vit K 120 mcg capsule (Bariatric Multivitamins) ascorbic acid (vitamin C) 500 mg 500 mg PO DAILY 01/15/23 11/12/23 History tablet (Vitamin C) cholecalciferol (vitamin D3) 250 250 mcg PO DAILY 10/10/23 11/12/23 History mcg (10,000 unit) capsule zinc 50 mg tablet 50 mg PO DAILY 10/30/23 11/12/23 History Allergies Allergy/AdvReac Type Severity Reaction Status Date / Time No Known Allergies Allergy Verified 11/12/23 09:44 Vital Signs Vital Signs - 24 hr 11/12/23 09:45 Temperature 36.6 C Pulse Rate 55 L Respiratory Rate 16 Blood Pressure 146/86 H Pulse Oximetry 97 Oxygen Delivery Room Air
[2023-11-12] MEDS: ceFAZolin 2 GM/D5W 50 ML 2 GM/50 ML BAG IVPB (11:00)
--- NOTE | 2023-11-12 11:10 | WPDANESEPPF ---
Anes - Initial Pre Proc Eval Procedure: Operation Date: 11/12/23 11:30 Proposed Procedures p Laparoscopic Left Inguinal Hernia Repair with Mesh, Davinci Assisted - Sherif Wilson DO Date/Time: 11/12/23 11:10 Surgeon: Sherif Wilson DO Pre Op Diagnosis: Left Ing Hernia Patient Data Age: 53 Gender: M Height: 1.88 m Weight: 104.3 kg Last Vital Signs Temp 36.6 C 11/12/23 09:45 Pulse 55 L 11/12/23 09:45 Resp 16 11/12/23 09:45 BP 146/86 H 11/12/23 09:45 Pulse Ox 97 11/12/23 09:45 O2 Del Method Room Air 11/12/23 09:45 Allergies Allergy/AdvReac Type Severity Reaction Status Date / Time No Known Allergies Allergy Verified 11/12/23 09:44 Home Medications Medication Instructions Recorded Confirmed Type eddlkhwo-ijrksykm-icyd 45 mg-folic 1 cap PO DAILY 02/24/22 11/12/23 History acid 800 mcg-vit K 120 mcg capsule (Bariatric Multivitamins) ascorbic acid (vitamin C) 500 mg 500 mg PO DAILY 01/15/23 11/12/23 History tablet (Vitamin C) cholecalciferol (vitamin D3) 250 250 mcg PO DAILY 10/10/23 11/12/23 History mcg (10,000 unit) capsule zinc 50 mg tablet 50 mg PO DAILY 10/30/23 11/12/23 History Patient hx anesthesia problems: none Family hx anesthesia problems: none Results Review: All pre-operative results and documents have been reviewed as part of the pre-operative evaluation. [facility] Past Medical History Medical History (Updated 11/12/23 @ 11:11 by Estevan Jon MD) COVID-19 (~10/2021) Essential hypertension History of frequent headaches Low testosterone in male Migraines VICKI (obstructive sleep apnea) Screening for colon cancer 03/2021 normal cologard hx Screening PSA (prostate specific antigen) 04/03/2021 psa ordered Vitamin D deficiency Surgical History Surgical History H/O inguinal hernia repair LAP right inguinal hernia repair with mesh da kash assisted on 01/22/23. History of dental surgery [place] [facility] History of gastric bypass (01/16/22) Weight prior to bypass 427 lb Family History Family History Father , At age 82 Hypertension Lung cancer Mother Hypertension Sibling Thyroid disorder Grandparent Lung cancer Heart problem Social History Social History Social History: The patient is single and has never been . 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 He is a lifelong nonsmoker. He only rarely drink alcohol prior to his bypass procedure. Code status: Full code Surrogate decision maker: Shweta (sister) Smoking status: Never smoker Alcohol intake: current Drinks per week: 1 Substance use: never Substance use type: does not use Lack of Transportation: No Lack of Food: Never True Current Housing: I Have Housing Concerned About Future Housing: No Difficulty Paying Gas/Electric Bills: No Difficulty Paying for Meds: No Currently Unemployed: No Education: High School Diploma/GED Difficulty w/ Childcare or Family Care: No Living arrangements: with family Additional living arrangements comments: MOM Spiritual care concerns: No Anes - Eval Final PreProcedure Day of Procedure 11/12/23 11:10 Patient weight: overweight Heart: regular rate and rhythm Lungs: clear to auscultation Airway: Mallampati scale class II Neurological: alert and oriented Last oral intake: >/= 8 hours ASA classification: III Emergent: no Anesthetic plan: proceed Anesthesia type and monitoring: general ETT and standard monitoring Results Review: All pre-operative results and documents have been reviewed as part of the pre-operative evaluation. Informed Consent: The patient's anesthetic plan and its attendant risks and benefits were discussed with the patient/family/POA. Questions were solicited and answers provide
[2023-11-12] MEDS: BUPIVACAINE/EPINEPHRINE 0.5% 50 ML VIAL 30 ML INFILTRATE (11:35)
--- NOTE | 2023-11-12 12:25 | W.PM.PROC2 ---
Procedure Note - Detailed Date of Procedure 11/12/23 Pre-op Diagnosis Left inguinal hernia Post-op Diagnosis Same (Indirect left inguinal hernia) Procedure Performed Laparoscopic left inguinal hernia repair with mesh, [place] assisted Surgeon Sherif Wilson DO Anesthesia General and Local (0.5% bupivacaine with epinephrine) Indications This is a 53-year-old man who presented with a left groin bulge that he noticed several months ago. It had increased in size and was causing some discomfort. He previously had a right inguinal hernia repair about 1 year ago and no left inguinal hernia was identified at that time. A recent CT was performed and this showed evidence of a left inguinal hernia. Discussions were made with the patient about treatment options and decision was made to proceed with robotic assisted laparoscopic left inguinal hernia repair with mesh. Findings Laparoscopic left inguinal hernia repair was performed. The patient was found to have an indirect left inguinal hernia with a moderate-sized hernia sac extending into the inguinal canal. A robotic transabdominal preperitoneal approach was utilized for repair. Once a wide enough preperitoneal pocket was created, a large left Bard 3DMax mid mesh was placed overlying the entire left myopectineal orifice. No specimens were obtained for pathology. There was no sign of a recurrent right inguinal hernia. Description of Procedure Procedure as well as risks, benefits, and alternatives were discussed with the patient. Written consent was obtained and placed in chart prior to procedure. Patient was brought back to surgical suite. He was placed supine on operating table. Time-out was done to confirm patient and procedure. He was then intubated by Anesthesia Department. His abdomen was prepped and draped in sterile fashion using chlorhexidine prep. 0.5% bupivacaine with epinephrine was infiltrated at each location for incision. An 8 mm incision was made in the left lateral abdomen, and a 5 mm Optiview trocar was advanced through the abdominal layers under direct visualization. Once inside the abdominal cavity, carbon dioxide insufflation was used to create a pneumoperitoneum. A camera was inserted and the abdominal cavity was inspected. The patient was placed in slight Trendelenburg position. An 8 millimeter incision was made on the right lateral abdomen and an 8 millimeter trocar was inserted under direct visualization. Another 8 millimeter incision was made just superior to the umbilicus and an 8 millimeter trocar was inserted under direct visualization. The 5 mm port was then removed and this was replaced with another 8 mm robotic port. The robotic arms were brought up to the patient's bedside and secured to the ports. The camera and instruments were inserted. I then moved over to the robotic console and took control of the camera and instruments. After careful inspection of the abdominal cavity, I began scoring the peritoneum along the left lower quadrant using scissors with electrocautery. The preperitoneal plane was entered and this was carefully dissected caudally along the inferior epigastric vessels. Careful dissection with scissors with electrocautery and blunt dissection was used to continue this dissection. I dissected far enough laterally to allow for mesh placement, and also dissected medially to identify the pubic arch and Rg's ligament. The hernia sac was identified and carefully dissected posteriorly. The cord contents were also identified and the peritoneum was carefully dissected far enough posteriorly to allow for mesh placement. Once an adequate pocket was created, I then placed the mesh within the preperitoneal pocket and carefully unfolded it. The mesh was centered on the hernia defect with adequate overlap circumferentially. The inferior edge of the mesh was inspected to ensure that it was far enough away from the peritoneal edge. The mesh appeared in proper posit
== END 2023-11-12 14:26 | disposition home or self-care (01) ==
PROVIDERS: PCP Family Medicine; Visit Provider Surgery
PROC: 8E0Y4CZ Robotic Assisted Procedure of Lower Extremity, Percutaneous Endoscopic Approach (ICD-10-PCS; CPT 49650; principal; 2023-11-12 11:30)
DX: K40.90 Unilateral inguinal hernia, without obstruction or gangrene, not specified as recurrent (principal); G47.33 Obstructive sleep apnea (adult) (pediatric); E55.9 Vitamin D deficiency, unspecified; Z98.84 Bariatric surgery status
CPT/HCPCS: 49650; S2900; A9270; C1781; J0690; J1100; J1170; J1596; J1885; J2250; J2405; J2704; J3010; J7120

== ENCOUNTER 2024-12-07 07:56 | Outpatient (CLI) | payer BC, SELFPAY ==
[2024-12-08 16:33] LABS: Sex Hormone Binding Globulin 75 nmol/L (10-50)
[2024-12-11 12:23] LABS: Testosterone Free 46.5 pg/mL (46.0-224.0)
[2024-12-11 18:32] LABS: Testosterone Total 757 ng/dL (250-1100)
== END 2024-12-07 07:57 | disposition home or self-care (01) ==
LOC: ANHBWCLAB 08:01
PROVIDERS: PCP Family Medicine; Visit Provider Internal Medicine Endocrinology, Diabetes & Metabolism
DX: E29.1 Testicular hypofunction (principal)
CPT/HCPCS: 36415; 82040; 84270; 84402; 84403

== ENCOUNTER 2025-03-23 08:10 | Outpatient (CLI) | payer BC, SELFPAY ==
--- OUTSIDE RECORDS SUMMARY | 2025-03-23 08:16 | XMS_ITS | Clinical Summary ---
Author Organization [facility] [employer] Address [address] [place] [address] Care Team Providers Care Audio Production Engineer Name Role Phone Iglesia Benavides MD Primary Care Provider [phone] Source Comments [facility],non-owned Affiliates and Associated Physician Practices is amultiple site organization consisting of ambulatory clinics and hospital sitesin [place], [place], [place] and [place]. This disclosure is being madepursuant to the Care Everywhere program and may not contain all information available regarding this patient. Last updated 18.[facility] [employer] Allergies No known active allergies Medications * Be aware that medications may not be up to date on this document. Alwaysverify current medications with the patient. lisinopril (PRINIVIL; ZESTRIL) 20 MG tablet Take 1 (one) tablet by mouth once daily 90 tablet 4 01/17/2022 Active Testosterone 1.62 % GEL Apply 1 Pump to skin once daily Active Active Problems Problem Noted Date Diagnosed Date S/P gastric bypass 01/16/2022 Encounters Date Type Department Care Team Description 02/03/2025 1:00 PM CDT Office Visit [facility] Weight Management Services [address] [place] [address], [facility] [address] [place] [address] Homa Brown, LOADMASTER-TRAINING PROJECT MANAGER Bariatric surgery status (Primary Dx); Vitamin deficiency; Vitamin D deficiency; Vitamin B deficiency; Mineral deficiency; Intestinal malabsorption, unspecified type; Class 2 obesity with body mass index (BMI) of 36.0 to 36.9 in adult, unspecified obesity type, unspecified whether serious comorbidity present from Last 3 Months Social History Tobacco Use Types Packs/Day Years Used Date Smoking Tobacco: Never Smokeless Tobacco: Never Alcohol Use Standard Drinks/Week Comments Yes 0 (1 standard drink = 0.6 oz pur e alcohol) occas AUDIT-C Answer Date Recorded Q1: How often do you have a drink containing alc ohol? 2-4 times a month 01/16/2022 Q2: How many drinks containi ng alcohol do you have on a typical day when you are drinking? 1 or 2 01/16/2022 Q3: How often do you have si x or more drinks on one occasion? Never 01/16/2022 Hunger Vital Sign Answer Date Recorded Within the past 12 months, y ou worried that your food would run out before you got the money to buy more. Never true 01/18/20 22 Within the past 12 months, t he food you bought just didn't last and you didn't have money to get more. Never true 01/17/2022 Sex and Gender Information Value Date Recorded Sex Assigned at Male 07/16/2021 11:10 AM CDT Legal Sex Male 9:35 AM PET AMBASSADOR Gender Identity Male 12/01/2021 8:28 AM PET AMBASSADOR Sexual Orientation Straight 07/16/2021 11 :10 AM CDT Last Filed Vital Signs Vital Sign Reading Time Taken Comments Blood Pressure 130/80 02/03/2025 12:57 PM CDT Pulse 90 02/03/2025 12:57 PM CDT Temperature 36.5 C (97.7 F) 02/03/2025 12:57 PM CDT Respiratory Rate 18 07/25/2022 12:0 6 PM CDT Oxygen Saturation 98% 02/03/2025 12: 57 PM CDT Inhaled Oxygen Concentration - - Weight 116.9 kg (257 lb 12.8 oz) 2024 12:57 PM CDT Height 185.4 cm (6' 1 ) 02/03/2025 12:5 7 PM CDT Body Mass Index 34.01 02/03/2025 12:57 PM CDT Plan of Treatment Upcoming Encounters Date Type Department Care Team (Late st Contact Info) Description 02/03/2026 1:30 PM CDT Office Visit [facility] Weight Management Services [address], [address] [place] [address] Homa Brown, LOADMASTER-[facility] [address] [place] [address] Health Maintenance Due Date Last Done Comments COLON MONITORING 1969 COLONOSCOPY - COLON CA SCREENING 1969 CT COLONOGRAPHY - COLON CA SCREENING 1969 FIT - COLON CA SCREENING 1969 FLEX SIG - COLON CA SCREENING 1969 LIPID TESTING 1969 HIV SCREENING 1984 HEPATITIS C SCREENING 10/16/1987 DTAP/TDAP/TD VACCINES (1 - Tdap) 1988 HEPATITIS B VACCINE (1 of 3 - 19+ 3-dose series) 1988 PNEUMOCOCCAL VACCINE 50+ (1 of 1 - PCV) 2019 ZOSTER VACCINE (1 of 2) 2019 COLOGUARD (AGES 45-75) - COLON CA SCREENING 08/12/2023 08/12/2020 Colorectal Cancer Screening 08/12/2023 COVID-19 VACCINE (1 - season) 2024 DEPRESSION SCREENING 11/11/2024 INFLUENZA VACCINE (Season Ended) 2025 08/02/2023, 08/03/2021 SCREENING FOR DIABETES 02/04/2028 , 01/23/2024, 01/16/2023, Additional history exists HIB VACCINE Aged Out No longer eligi ble based on patient's age to complete this topic HPV VACCINE Aged Out No longer eligi ble based on patient's age to complete this topic MENINGOCOCCAL (Group B) VACCINE SHARED DECISION-MAKING Aged Out No longer eligible based on patient's age to complete this topic MENINGOCOCCAL GROUPS A/C/Y/W VACCINE Aged Out No longer eligible based on patient's age to complete this topic Procedures Procedure Name Priority Date/Time Associated Diagnosis Comments VITAMIN A Routine 02/03/2025 1:36 PM CDT Bariatric surgery status Vitamin deficiency Vitamin D deficiency Vitamin B deficiency Mineral deficiency Intestinal malabsorption, unspecified type (HCC) Class 2 obesity with body mass index (BMI) of 36.0 to 36.9 in adult, unspecified obesity type, unspecified whether serious comorbidity present VITAMIN E Routine 02/03/2025 1:36 PM CDT Bariatric surgery status Vitamin deficiency Vitamin D deficiency Vitamin B deficiency Mineral deficiency Intestinal malabsorption, unspecified type (HCC) Class 2 obesity with body mass index (BMI) of 36.0 to 36.9 in adult, unspecified obesity type, unspecified whether serious comorbidity present VITAMIN K1 Routine 02/03/2025 1:36 PM CDT Bariatric surgery status Vitamin deficiency Vitamin D deficiency Vitamin B deficiency Mineral deficiency Intestinal malabsorption, unspecified type (HCC) Class 2 obesity with body mass index (BMI) of 36.0 to 36.9 in adult, unspecified obesity type, unspecified whether serious comorbidity present PTH INTACT Routine 02/03/2025 1:36 PM CDT Bariatric surgery status Vitamin deficiency Vitamin D deficiency Vitamin B deficiency Mineral deficiency Intestinal malabsorption, unspecified type Class 2 obesity with body mass index (BMI) of 36.0 to 36.9 in adult, unspecified obesity type, unspecified whether serious comorbidity present MAGNESIUM BLOOD Routine 02/03/2025 1:36 PM CDT Bariatric surgery status Vitamin deficiency Vitamin D deficiency Vitamin B deficiency Mineral deficiency Intestinal malabsorption, unspecified type Class 2 obesity with body mass index (BMI) of 36.0 to 36.9 in adult, unspecified obesity type, unspecified whether serious comorbidity present FOLATE RBC Routine 02/03/2025 1:36 PM CDT Bariatric surgery status Vitamin deficiency Vitamin D deficiency Vitamin B deficiency Mineral deficiency Intestinal malabsorption, unspecified type Class 2 obesity with body mass index (BMI) of 36.0 to 36.9 in adult, unspecified obesity type, unspecified whether serious comorbidity present FERRITIN Routine 02/03/2025 1:36 PM CDT Bariatric surgery status Vitamin deficiency Vitamin D deficiency Vitamin B deficiency Mineral deficiency Intestinal malabsorption, unspecified type Class 2 obesity with body mass index (BMI) of 36.0 to 36.9 in adult, unspecified obesity type, unspecified whether serious comorbidity present COPPER BLOOD Routine 02/03/2025 1:36 PM CDT Bariatric surgery status Vitamin deficiency Vitamin D deficiency Vitamin B deficiency Mineral deficiency Intestinal malabsorption, unspecified type Class 2 obesity with body mass index (BMI) of 36.0 to 36.9 in adult, unspecified obesity type, unspecified whether serious comorbidity present COMPREHENSIVE METABOLIC PANEL Routine 02/03/2025 1:36 PM CDT Bariatric surgery status Vitamin deficiency Vitamin D deficiency Vitamin B deficiency Mineral deficiency Intestinal malabsorption, unspecified type Class 2 obesity with body mass index (BMI) of 36.0 to 36.9 in adult, unspecified obesity type, unspecified whether serious comorbidity present CBC W/O DIFFERENTIAL Routine 02/03/2025 1:36 PM CDT Bariatric surgery status Vitamin deficiency Vitamin D deficiency Vitamin B deficiency Mineral deficiency Intestinal malabsorption, unspecified type Class 2 obesity with body mass index (BMI) of 36.0 to 36.9 in adult, unspecified obesity type, unspecified whether serious comorbidity present IRON + TIBC PANEL Routine 02/03/2025 1:3 5 PM CDT Bariatric surgery status Vitamin deficiency Vitamin D deficiency Vitamin B deficiency Mineral deficiency Intestinal malabsorption, unspecified type Class 2 obesity with body mass index (BMI) of 36.0 to 36.9 in adult, unspecified obesity type, unspecified whether serious comorbidity present VITAMIN B1 Routine 02/03/2025 1:35 PM CDT Bariatric surgery status Vitamin deficiency Vitamin D deficiency Vitamin B deficiency Mineral deficiency Intestinal malabsorption, unspecified type Class 2 obesity with body mass index (BMI) of 36.0 to 36.9 in adult, unspecified obesity type, unspecified whether serious comorbidity present VITAMIN B12 Routine 02/03/2025 1:35 PM CDT Bariatric surgery status Vitamin deficiency Vitamin D deficiency Vitamin B deficiency Mineral deficiency Intestinal malabsorption, unspecified type Class 2 obesity with body mass index (BMI) of 36.0 to 36.9 in adult, unspecified obesity type, unspecified whether serious comorbidity present VITAMIN D 25-HYDROXY Routine 02/03/2025 1:35 PM CDT Bariatric surgery status Vitamin deficiency Vitamin D deficiency Vitamin B deficiency Mineral deficiency Intestinal malabsorption, unspecified type Class 2 obesity with body mass index (BMI) of 36.0 to 36.9 in adult, unspecified obesity type, unspecified whether serious comorbidity present ZINC BLOOD Routine 02/03/2025 1:35 PM CDT Bariatric surgery status Vitamin deficiency Vitamin D deficiency Vitamin B deficiency Mineral deficiency Intestinal malabsorption, unspecified type Class 2 obesity with body mass index (BMI) of 36.0 to 36.9 in adult, unspecified obesity type, unspecified whether serious comorbidity present PREALBUMIN Routine 02/03/2025 1:35 PM CDT Bariatric surgery status Vitamin deficiency Vitamin D deficiency Vitamin B deficiency Mineral deficiency Intestinal malabsorption, unspecified type Class 2 obesity with body mass index (BMI) of 36.0 to 36.9 in adult, unspecified obesity type, unspecified whether serious comorbidity present from Last 3 Months Results * (ABNORMAL) VITAMIN K1 (02/03/2025 1:36 PM CDT) Vitamin K1 <0.10(L) 0.10 - 2.20 ng/mL [facility] ACCOUNT BILL Blood BLOOD SPECIMEN / Unknown 02/03/2025 1:36 PM CDT 02/03/2025 Narrative [facility] ACCOUNT BILL - 02/09/2025 1:09 PM CDT Test(s) 774908-Vgebwbt K1 was developed and its performance characteristics determined by [facility]. It has not been cleared or approved by the Food and Drug Administration. Performed at: 01 - [facility] [id number] Building Mechanic: Thelma Miranda MD, Phone: [phone] Homa Brown LOADMASTER-TRAINING PROJECT MANAGER LAB - CHEMISTRY O RDERABLES Final Result [facility] ACCOUNT BILL [address] [place] [address] * VITAMIN A (02/03/2025 1:36 PM CDT) Vitamin A 31.5 20.1 - 62.0 ug/dL [facility] ACCOUNT BILL Comment: Reference intervals for vitamin A determined from [facility] internal studies. Individuals with vitamin A less than 20 ug/dL are considered vitamin A deficient and those with serum concentrations less than 10 ug/dL are considered severely deficient. This test was developed and its performance characteristics determined by [facility]. It has not been cleared or approved by the Food and Drug Administration. Blood BLOOD SPECIMEN / Unknown 02/03/2025 1:36 PM CDT 02/03/2025 Narrative [facility] ACCOUNT BILL - 02/11/2025 9:08 PM CDT Performed at: - [facility] [id number] Building Mechanic: Thelma Miranda MD, Phone: [phone] Homa Brown LOADMASTER-TRAINING PROJECT MANAGER LAB - CHEMISTRY O RDERABLES Final Result [facility] ACCOUNT BILL [address] [place] [address] * VITAMIN E (02/03/2025 1:36 PM CDT) Vitamin E Alpha Tocopherol 7.5 7.0 - 25.1 mg/L [facility] ACCOUNT BILL Vitamin E Gamma Tocopherol 0.8 0.5 - 5.5 mg/L [facility] ACCOUNT BILL Comment: Reference intervals for alpha and gamma-tocopherol determined from National Health and Nutrition Examination Survey, 7824-6778. Individuals with alpha-tocopherol levels less than 5.0 mg/L are considered vitamin E deficient. Blood BLOOD SPECIMEN / Unknown 02/03/2025 1:36 PM CDT 02/03/2025 Narrative [facility] ACCOUNT BILL - 02/11/2025 9:08 PM CDT Test(s) 867902-Jibjays E(Alpha Tocopherol); 451764- Vitamin E(Gamma Tocopherol) was developed and its performance characteristics determined by [facility]. It has not been cleared or approved by the Food and Drug Administration. Performed at: - [facility] [id number] Building Mechanic: Thelma Miranda MD, Phone: [phone] us Homa Brown LOADMASTER-TRAINING PROJECT MANAGER LAB - CHEMISTRY O RDERABLES Final Result Performing Organization Address City/[facility]/ZIP Co de Phone Number [facility] ACCOUNT BILL [address] [place] [address] * PTH INTACT (02/03/2025 1:36 PM CDT) PTH Intact 40 15 - 65 pg/mL [facility] ACCOUNT BILL Blood BLOOD SPECIMEN / Unknown 02/03/2025 1:36 PM CDT 02/03/2025 Narrative [facility] ACCOUNT BILL - 02/04/2025 10:10 AM CDT Performed at: - [facility] [id number] Building Mechanic: Logan Ferris PhD, Phone: [phone] us Homa Brown LOADMASTER-TRAINING PROJECT MANAGER LAB - CHEMISTRY O RDERABLES Final Result Performing Organization Address [facility] de Phone Number [facility] ACCOUNT BILL [address] [place] [address] * COPPER BLOOD (02/03/2025 1:36 PM CDT) Pathologist [facility] Copper 99 69 - 132 ug/dL [facility] ACCOUNT BILL Comment:Detection Limit = 5 Blood BLOOD SPECIMEN / Unknown 02/03/2025 1:36 PM CDT 02/03/2025 Narrative [facility] ACCOUNT BILL - 02/06/2025 11:07 PM CDT Test(s) 046856-Tuvqik, Serum or Plasma was developed and its performance characteristics determined by [employer]. It has not been cleared or approved by the Food and Drug Administration. Performed at: - [facility] [id number] Building Mechanic: Thelma Miranda MD, Phone: [phone] us Homa Brown LOADMASTER-TRAINING PROJECT MANAGER LAB - CHEMISTRY O RDERABLES Final Result Performing Organization Address City/[facility]/ZIP Co de Phone Number [facility] ACCOUNT BILL [address] [place] [address] * FOLATE RBC (02/03/2025 1:36 PM CDT) Pathologist [facility] Folate Hemolysate 326.0 Not Estab. ng/mL [facility] ACCOUNT BILL Folate RBC 916 >498 ng/mL [facility] ACCOUNT BILL Blood BLOOD SPECIMEN / Unknown 02/03/2025 1:36 PM CDT 02/03/2025 Narrative [facility] ACCOUNT BILL - 02/04/2025 5:09 PM CDT Performed at: - [facility] [id number] [place], [place] [id number] Building Mechanic: Logan Ferris PhD, Phone: [phone] Homa Brown LOADMASTER-TRAINING PROJECT MANAGER LAB - CHEMISTRY O RDERABLES Final Result Performing Organization Address City/[facility] Co de Phone Number [facility] ACCOUNT BILL [address] [place] [address] * (ABNORMAL) CBC W/O DIFFERENTIAL (02/03/2025 1:36 PM CDT) Pathologist [facility] WBC 3.6 3.4 - 10.8 x10E3/uL [facility] ACCOUNT BILL RBC 4.50 4.14 - 5.80 x10E6/uL [facility] ACCOUNT BILL Hemoglobin 10.9(L) 13.0 - 17.7 g/dL [facility] ACCOUNT BILL Hematocrit 35.6(L) 37.5 - 51.0 % [facility] ACCOUNT BILL MCV 79 79 - 97 fL [facility] ACCOUNT BILL MCH 24.2(L) 26.6 - 33.0 pg [facility] ACCOUNT BILL MCHC 30.6(L) 31.5 - 35.7 g/dL [facility] ACCOUNT BILL RDW 16.5(H) 11.6 - 15.4 % [facility] ACCOUNT BILL Platelet Count 259 150 - 450 x10E3/uL [facility] ACCOUNT BILL Blood BLOOD SPECIMEN / Unknown 02/03/2025 1:36 PM CDT 02/03/2025 Narrative [facility] ACCOUNT BILL - 02/04/2025 7:09 AM CDT Performed at: 01 - [facility] [address] [id number] Building Mechanic: Logan Ferris PhD, Phone: [phone] Homa Brown LOADMASTER-TRAINING PROJECT MANAGER LAB - HEMATOLOGY ORDERABLES Final Result [facility] ACCOUNT BILL [address] [place] [address] * (ABNORMAL) COMPREHENSIVE METABOLIC PANEL (02/03/2025 1:36 PM CDT) [facility] Glucose 75 70 - 99 mg/dL [facility] ACCOUNT BILL BUN 15 6 - 24 mg/dL [facility] ACCOUNT BILL Creatinine 0.71(L) 0.76 - 1.27 mg/dL [facility] ACCOUNT BILL eGFR by CKD-EPI 108 >59 mL/min/1.7 3 [facility] ACCOUNT BILL BUN/Creatinine Ratio 21(H) 9 - 20 [facility] ACCOUNT BILL Sodium 143 134 - 144 mmol/L [facility] ACCOUNT BILL Potassium 4.4 3.5 - 5.2 mmol/L [facility] ACCOUNT BILL Chloride 105 96 - 106 mmol/L [facility] ACCOUNT BILL CO2 25 20 - 29 mmol/L [facility] ACCOUNT BILL Calcium 8.8 8.7 - 10.2 mg/dL [facility] ACCOUNT BILL Protein Total 6.2 6.0 - 8.5 g/dL [facility] ACCOUNT BILL Albumin 3.9 3.8 - 4.9 g/dL [facility] ACCOUNT BILL Globulin Total 2.3 1.5 - 4.5 g/dL [facility] ACCOUNT BILL Bilirubin Total 0.4 0.0 - 1.2 mg/dL [facility] ACCOUNT BILL Alkaline Phosphatase 101 44 - 121 IU/L [facility] ACCOUNT BILL AST 26 0 - 40 IU/L [facility] ACCOUNT BILL ALT 19 0 - 44 IU/L [facility] ACCOUNT BILL Blood BLOOD SPECIMEN / Unknown 02/03/2025 1:36 PM CDT 02/03/2025 Narrative [facility] ACCOUNT BILL - 02/04/2025 9:10 AM CDT Performed at: 01 - [facility] [address] [id number] Building Mechanic: Logan Ferris PhD, Phone: [phone] us Homa Brown LOADMASTER-TRAINING PROJECT MANAGER LAB - CHEMISTRY O RDERABLES Final Result Performing Organization Address City/[facility]/ZIP Co de Phone Number [facility] ACCOUNT BILL [address] [place] [address] * MAGNESIUM BLOOD (02/03/2025 1:36 PM CDT) Magnesium 2.1 1.6 - 2.3 mg/dL [facility] ACCOUNT BILL Blood BLOOD SPECIMEN / Unknown 02/03/2025 1:36 PM CDT 02/03/2025 Narrative [facility] ACCOUNT BILL - 02/04/2025 11:10 AM CDT Performed at: 01 - [facility] [id number] Building Mechanic: Logan Ferirs PhD, Phone: [phone] us Homa Brown LOADMASTER-TRAINING PROJECT MANAGER LAB - CHEMISTRY O RDERABLES Final Result Performing Organization Address [facility] Co de Phone Number [facility] ACCOUNT BILL [address] [place] [address] * (ABNORMAL) FERRITIN (02/03/2025 1:36 PM CDT) Ferritin 11(L) 30 - 400 ng/mL [facility] ACCOUNT BILL Blood BLOOD SPECIMEN / Unknown 02/03/2025 1:36 PM CDT 02/03/2025 Narrative [facility] ACCOUNT BILL - 02/04/2025 11:10 AM CDT Performed at: 01 - [facility] [id number] Building Mechanic: Logan Ferris PhD, Phone: [phone] us Homa Brown LOADMASTER-TRAINING PROJECT MANAGER LAB - CHEMISTRY O RDERABLES Final Result Performing Organization Address City/[facility]/ZIP Co de Phone Number [facility] ACCOUNT BILL [address] [place] [address] * (ABNORMAL) ZINC BLOOD (02/03/2025 1:35 PM CDT) Zinc, Plasma or Serum 131(H) 44 - 115 ug/dL [facility] ACCOUNT BILL Comment:Detection Limit = 5 Blood BLOOD SPECIMEN / Unknown 02/03/2025 1:35 PM CDT 02/03/2025 Narrative [facility] ACCOUNT BILL - 02/06/2025 11:07 PM CDT Test(s) 112655-Tdbk, Plasma or Serum was developed and its performance characteristics determined by [facility]. It has not been cleared or approved by the Food and Drug Administration. Performed at: - [facility] [id number] Building Mechanic: Thelma Miranda MD, Phone: [phone] Homa Brown LOADMASTER-[facility] LAB - CHEMISTRY O RDERABLES Final Result Performing Organization Address [facility] Phone Number [facility] ACCOUNT BILL [address] [place] [address] * VITAMIN B1 (02/03/2025 1:35 PM CDT) Pathologist [facility] Vitamin B1 Whole Blood 107.6 66.5 - 200.0 nmol/L [facility] ACCOUNT BILL Blood BLOOD SPECIMEN / Unknown 02/03/2025 1:35 PM CDT 02/03/2025 Narrative [facility] ACCOUNT BILL - 02/06/2025 6:09 PM CDT Test(s) 157882-Aig. B1, Whole Blood was developed and its performance characteristics determined by [facility]. It has not been cleared or approved by the Food and Drug Administration. Performed at: - [facility] [id number] Building Mechanic: Thelma Miranda MD, Phone: [phone] Homa Brown LOADMASTER-TRAINING PROJECT MANAGER LAB - CHEMISTRY O RDERABLES Final Result Performing Organization Address [facility] de Phone Number [facility] ACCOUNT BILL [address] [place] [address] * (ABNORMAL) VITAMIN D 25-HYDROXY (02/03/2025 1:35 PM CDT) Vitamin D, 25 Hydroxy 18.3(L) 30.0 - 100.0 ng/mL [facility] ACCOUNT BILL Comment: Vitamin D deficiency has been defined by the [employer] of Medicine and an Endocrine Society practice guideline as a level of serum 25-OH vitamin D less than 20 ng/mL (1,2). The Endocrine Society went on to further define vitamin D insufficiency as a level between 21 and 29 ng/mL (2). 1. IOM ([place] of Medicine). 2010. Dietary reference intakes for calcium and D. [place]: The National Academies Press. 2. Josselyn MF, Kristy HERRERA, Mere GARCIA, et al. Evaluation, treatment, and prevention of vitamin D deficiency: an Endocrine Society clinical practice guideline. JCEM. 2010; 96(7):1911-30. Blood BLOOD SPECIMEN / Unknown 02/03/2025 1:35 PM CDT 02/03/2025 Narrative [facility] ACCOUNT BILL - 02/04/2025 8:11 AM CDT Performed at: - [facility] [id number] Building Mechanic: Logan Ferris PhD, Phone: [phone] Homa Brown LOADMASTER-TRAINING PROJECT MANAGER LAB - CHEMISTRY O RDERABLES Final Result Performing Organization Address City/State/[facility] Co de Phone Number [facility] ACCOUNT BILL [address] [place] [address] * PREALBUMIN (02/03/2025 1:35 PM CDT) Prealbumin 16 10 - 36 mg/dL [facility] ACCOUNT BILL Blood BLOOD SPECIMEN / Unknown 02/03/2025 1:35 PM CDT 02/03/2025 Narrative [facility] ACCOUNT BILL - 02/04/2025 1:09 PM CDT Performed at: - [facility] [id number] Building Mechanic: Logan Ferris PhD, Phone: [phone] us Homa Brown LOADMASTER-TRAINING PROJECT MANAGER LAB - CHEMISTRY O RDERABLES Final Result Performing Organization Address City/[facility]/ZIP Co de Phone Number [facility] ACCOUNT BILL [address] [place] [address] * (ABNORMAL) IRON + TIBC PANEL (02/03/2025 1:35 PM CDT) TIBC 420 250 - 450 ug/dL [facility] ACCOUNT BILL UIBC 245 111 - 343 ug/dL [facility] ACCOUNT BILL Iron 175(H) 38 - 169 ug/dL [facility] ACCOUNT BILL Iron Saturation 42 15 - 55 % [facility] ACCOUNT BILL Blood BLOOD SPECIMEN / Unknown 02/03/2025 1:35 PM CDT 02/03/2025 Narrative [facility] ACCOUNT BILL - 02/04/2025 8:11 AM CDT Performed at: - [facility] [id number] Building Mechanic: Logan Ferris PhD, Phone: [phone] us Homa Brown LOADMASTER-TRAINING PROJECT MANAGER LAB - CHEMISTRY O RDERABLES Final Result Performing Organization Address [facility] Co de Phone Number [facility] ACCOUNT BILL [address] [place] [address] * VITAMIN B12 (02/03/2025 1:35 PM CDT) Vitamin B12 531 232 - 1,245 pg/mL [facility] ACCOUNT BILL Blood BLOOD SPECIMEN / Unknown 02/03/2025 1:35 PM CDT 02/03/2025 Narrative [facility] ACCOUNT BILL - 02/04/2025 8:11 AM CDT Performed at: - [facility] [id number] Building Mechanic: Logan Ferris PhD, Phone: [phone] us Homa Brown LOADMASTER-TRAINING PROJECT MANAGER LAB - CHEMISTRY O RDERABLES Final Result [facility] ACCOUNT BILL [address] [place] [address] from Last 3 Months Insurance ANTHEM ANTHEM Advance Directives Documents on File Type Date Recorded 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
--- OUTSIDE RECORDS SUMMARY | 2025-03-23 08:16 | XMS_ITS | Clinical Summary ---
Author Organization [facility] [place] Address [address] [place] [address] Care Team Providers Care Mother Superior Name Role Phone Iglesia Benavides MD Primary Care Provider +1 [phone] Allergies No known active allergies Medications albuterol HFA (PROVENTIL HFA) 90 mcg/actuation inhalerIndicatio ns:Acute bronchitis, unspecified organism Inhale 2 puffs every 4 (four) hours as needed for wheezing or shortness of breath. 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 Morbid obesity with BMI of 50.0-59.9, adult 11/12 Hypertension 11/13/2018 Immunizations Immunization Administration Dates Next Due Tdap 07/18/2022 Medical History Medical History Date Comments Hypertension Sleep apnea Family History Medical History Relation Name Comments Hypertension Father Hypertension Mother Relation Name Status Comments Father Mother Social History Tobacco Use Types Packs/Day Years Used Date Smoking Tobacco: Never Smokeless Tobacco: Never Alcohol Use Standard Drinks/Week Comments Not Currently 0 (1 standard drink = 0.6 oz pur e alcohol) Personal Safety Answer Date Recorded Getting School Help Needed Not on file 01/23 Sex and Gender Information Value Date Recorded Sex Assigned at Not on file 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 Gender Identity Male 11/26/2019 6:24 AM GOVERNMENT TEACHER Sexual Orientation Straight 11/26/2019 6: 24 AM GOVERNMENT TEACHER Obstetrics History Last Filed Vital Signs Vital Sign Reading Time Taken Comments Blood Pressure 125/65 07/18/2022 4:30 PM CDT Pulse 51 07/18/2022 4:30 PM CDT Temperature 36.4 C (97.6 F) 07/18/2022 12:16 PM CDT Respiratory Rate 20 07/18/2022 12:16 PM CDT Oxygen Saturation 100% 07/18/2022 4:30 PM CDT Inhaled Oxygen Concentration - - Weight 127 kg (280 lb) 07/18/2022 12:16 PM CDT Height 188 cm (6' 2 ) 07/18/2022 12:16 PM CDT Body Mass Index 35.95 07/18/2022 12:16 PM CDT Plan of Treatment Health Maintenance Due Date Last Done Comments Colon Cancer Screening-Colonoscopy 1969 Depression Screening 1969 Hepatitis C Screening 1969 Prostate Cancer Screening-PSA 1969 Hepatitis B Screening 1987 Regular Well Visit/Exam 18-64 1987 Zoster Vaccine (1 of 2) 2019 Influenza Vaccine (Season Ended) 2025 08/03/20 20 DTaP/Tdap/Td Vaccine (2 - Td or Tdap) 07/18/2032 07/18/2022 Pneumococcal vaccine <65 Aged Out No longer eligible based on patient's age to complete this topic Insurance [facility] ACCESS BLUE ACCESS OOS [employer] ACCESS OOS Care Teams Mother Superior Relationship Specialty Start Date End Date Iglesia Benavides MD PCP - General 07/18/22
--- OUTSIDE RECORDS SUMMARY | 2025-03-23 08:16 | XMS_ITS | Referral Summary ---
Author Organization [facility] Address [address] [place] [address] Care Team Providers Care Public Stenographer Name Role Phone Iglesia Benavides MD Primary Care Provider +1 [phone] Allergies No known active allergies Medications albuterol [...] Immunization Administration Dates Next Due Tdap 07/18/2022 Social History Tobacco Use Types Packs/Day Years Used Date Smoking Tobacco: Never Smokeless Tobacco: Never Alcohol Use Standard Drinks/Week Comments Not Currently 0 (1 standard drink = 0.6 oz pur e alcohol) Personal Safety Answer Date Recorded Getting School Help Needed Not on file 01/23 Sex and Gender Information Value Date Recorded Sex Assigned at Not on file 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
--- OUTSIDE RECORDS SUMMARY | 2025-03-23 08:16 | XMS_ITS | Clinical Summary ---
Author Organization [facility] Anisha Angelo Address [address] [place] [address] Care Team Providers Care Marine Scientist Name Role Phone Mendoza Bryant DO Primary Care Provider Taylor vailable Allergies No known active allergies Medications lisinopril-hydro CHLOROthiazide (ZESTORETIC) 20-25 mg tablet 04/14/2021 Act laury albuterol sulfate 90 mcg/Actuation inhaler Take 2 Puffs by inhalation. 11/13/2018 Active cetirizine (ZyrTEC) 5 mg tablet Take 5 mg by mouth daily. Active cholecalciferol, vitamin D3, 100 mcg (4,000 unit) Capsule 04/13/2021 Active cyanocobalamin (VITAMIN B-12) 100 mcg tablet 06/13/2021 Acti ve ferrous sulfate 325 mg (65 mg iron) tablet 06/13/2021 Active Active Problems Problem Noted Date Diagnosed Date Chronic anemia 06/01/2021 Family History Medical History Relation Name Comments Healthy Brother 1 Healthy Brother 2 Lung Cancer Father Healthy Mother Healthy Sister 1 Healthy Sister 2 Healthy Sister 3 Relation Name Status Comments Brother 1 Alive Brother 2 Alive Father Mother Alive Sister 1 Alive Sister 2 Alive Sister 3 Alive Social History Tobacco Use Types Packs/Day Years Used Date Smoking Tobacco: Never Smokeless Tobacco: Never Alcohol Use Standard Drinks/Week Comments Yes 0 (1 standard drink = 0.6 oz pur e alcohol) Sex and Gender Information Value Date Recorded Sex Assigned at Not on file Legal Sex Male 1:53 PM CDT Gender Identity Not on file Sexual Orientation Not on file Last Filed Vital Signs Vital Sign Reading Time Taken Comments Blood Pressure 124/66 09/06/2021 2:30 PM CDT Pulse 88 09/06/2021 2:30 PM CDT Temperature 36.7 C (98 F) 09/06/2021 2:30 PM CDT Respiratory Rate - - Oxygen Saturation 93% 09/06/2021 2:30 PM CDT Inhaled Oxygen Concentration - - Weight 196 kg (432 lb 3.2 oz) 09/06/2021 2:30 PM CDT Height 188 cm (6' 2 ) 09/06/2021 2:30 PM CDT Body Mass Index 55.49 09/06/2021 2:30 PM CDT Plan of Treatment Health Maintenance Due Date Last Done Comments DTAP/TDAP/TD VACCINES (1 - Tdap) 1988 HEPATITIS B VACCINES (1 of 3 - 19+ 3-dose series) 10/11 COLORECTAL SCREENING 2014 Colorectal Cancer Screening 2014 FIT-DNA Q 3 years 2014 FIT/FOBT Q 1 year 2014 Flex Sig/CT Colonography Q 5 years 2014 ZOSTER VACCINE (1 of 2) 2019 INFLUENZA VACCINE (#1) 2024 Insurance [facility] EPO Care Teams Marine Scientist Relationship Specialty Start Date End Date Mendoza Bryant DO NO ADDRESS ON FILE PCP - General Family Practice 05/18/21
[2025-03-23 20:13] LABS: Hematocrit 38.6 % (42.0-52.0); Hemoglobin 11.5 g/dL (14.0-18.0); Mean Corpuscular HGB Conc 29.8 g/dl (32-36); Mean Corpuscular Hemoglobin 25.1 pg (26-34); Mean Corpuscular Volume 84.3 fl (80-100); Platelet Count Result 222 k/mm3 (150-375); Red Blood Count 4.58 M/mm3 (4.6-6.20); Red Cell Distribution Width 16.1 % (11.5-14.5); White Blood Count 3.8 K/mm3 (4.5-10.0)
[2025-03-23 20:25] LABS: Cholesterol 168 mg/dL (0-200); HDL Direct 61 mg/dL; Triglycerides 47 mg/dL (<150)
[2025-03-23 20:30] LABS: Alanine Aminotransferase 29 U/L (6-50); Albumin Level 4.2 g/dL (3.5-5.1); Alkaline Phosphatase 111 U/L (38-126); Anion Gap 8 mmol/L (4-12); Aspartate Amino Transferase 83 U/L (17-59); Bilirubin,Total 0.7 mg/dL (0.2-1.3); Blood Urea Nitrogen 16 mg/dL (9-20); Calcium 8.7 mg/dL (8.4-10.2); Carbon Dioxide 28 mmol/L (22-30); Chloride 104 mmol/L (98-107); Estimated Glomerular Filt Rate > 60; Glucose 86 mg/dL (65-110); Potassium 4.2 mmol/L (3.4-5.0); Sodium 140 mmol/L (137-145)
[2025-03-23 20:40] LABS: LDL Cholesterol Direct 76 mg/dL
[2025-03-23 21:09] LABS: Free T4 Free Thyroxine 1.09 ng/dL (0.78-2.19)
[2025-03-23 22:49] LABS: Prostate Specific Antigen 0.8 ng/mL (< OR = 4.0)
[2025-03-24 17:38] LABS: CRP, High Sensitivity <0.2 mg/L
== END 2025-03-23 08:11 | disposition home or self-care (01) ==
LOC: ANHBWCLAB 08:12
PROVIDERS: PCP Family Medicine; Visit Provider Internal Medicine Endocrinology, Diabetes & Metabolism
DX: Z00.00 Encounter for general adult medical examination without abnormal findings (principal); E29.1 Testicular hypofunction; I10 Essential (primary) hypertension; I95.1 Orthostatic hypotension; E66.9 Obesity, unspecified; K40.90 Unilateral inguinal hernia, without obstruction or gangrene, not specified as recurrent; G47.33 Obstructive sleep apnea (adult) (pediatric); Z98.84 Bariatric surgery status; Z29.9 Encounter for prophylactic measures, unspecified; Z12.5 Encounter for screening for malignant neoplasm of prostate
CPT/HCPCS: 36415; 80053; 80061; 82172; 84153; 84439; 84443; 85027; 86141; G0103

== ENCOUNTER 2025-04-01 08:25 | Outpatient (CLI) | payer BC, SELFPAY ==
--- OUTSIDE RECORDS SUMMARY | 2025-04-01 08:30 | XMS_ITS | Clinical Summary ---
Author Organization [facility] Address [address] [place] [address] Care Team Providers Care State Manager Name Role Phone Iglesia Benavides MD Primary Care Provider [phone] [phone] Source Comments [facility],non-owned Affiliates and Associated Physician Practices is amultiple site organization consisting of ambulatory clinics and hospital sitesin [place], [place], [place] and [place]. This disclosure is being madepursuant to the Care Everywhere program and may not contain all information available regarding this patient. Last updated 18.[facility] Allergies No known active allergies Medications * [...] Description 02/03/2025 1:00 PM CDT Office Visit [facility] [address] [place] [address], [facility] [address] [place] [address] Homa Brown, CLIENT EXPERIENCE MANAGER-CLIENT LEADER Bariatric surgery status (Primary Dx); Vitamin deficiency; [...] AM CDT Legal Sex Male 9:35 AM PHOTO PRODUCER Gender Identity Male 12/01/2021 8:28 AM PHOTO PRODUCER Sexual Orientation Straight 07/16/2021 11 :10 AM [...] Description 02/03/2026 1:30 PM CDT Office Visit [facility] [address], [address] [place] [address] Homa Brown, CLIENT EXPERIENCE MANAGER-[facility] [address] [facility] [address] [place] [address] Health Maintenance Due Date Last [...] BILL - 02/09/2025 1:09 PM CDT Test(s) 398529-Skdrfzt K1 was developed and its performance characteristics determined by [facility]. It has not been cleared or approved by the Food and Drug Administration. Performed at: 01 - [facility] [id number] Pipe And Boiler Covers Supervisor: Thelma Miranda MD, Phone: [phone] Homa Brown CLIENT EXPERIENCE MANAGER-CLIENT LEADER LAB - CHEMISTRY O RDERABLES Final Result [facility] ACCOUNT BILL [address] [place] [address] * VITAMIN A (02/03/2025 1:36 PM CDT) [...] 02/11/2025 9:08 PM CDT Performed at: - [facility] [id number] [employer] Supervisor: Thelma Miranda MD, Phone: [phone] Homa Brown CLIENT EXPERIENCE MANAGER-CLIENT LEADER LAB - CHEMISTRY O RDERABLES Final Result [facility] ACCOUNT BILL [address] [place] [address] * VITAMIN E (02/03/2025 1:36 PM CDT) Vitamin E Alpha Tocopherol 7.5 7.0 - 25.1 mg/L [facility] ACCOUNT BILL Vitamin E Gamma Tocopherol 0.8 0.5 - 5.5 mg/L [facility] ACCOUNT BILL Comment: Reference intervals for alpha and gamma-tocopherol determined from National Health and Nutrition Examination Survey, 1076-7181. Individuals with alpha-tocopherol levels less than 5.0 mg/L are considered vitamin E deficient. Blood BLOOD SPECIMEN / Unknown 02/03/2025 1:36 PM CDT 02/03/2025 Narrative [facility] ACCOUNT BILL - 02/11/2025 9:08 PM CDT Test(s) 001280-Kwuqiuu E(Alpha Tocopherol); 991832- Vitamin E(Gamma Tocopherol) was developed and its performance characteristics determined by [facility]. It has not been cleared or approved by the Food and Drug Administration. Performed at: - [facility] [id number] [employer]vers Supervisor: Thelma Miranda MD, Phone: [phone] us Homa Brown CLIENT EXPERIENCE MANAGER-CLIENT LEADER LAB - CHEMISTRY O RDERABLES Final Result Performing Organization Address City/[facility]/ZIP Co de Phone Number [facility] ACCOUNT BILL [address] [place] [address] * PTH INTACT (02/03/2025 1:36 PM CDT) PTH Intact 40 15 - 65 pg/mL [facility] ACCOUNT BILL Blood BLOOD SPECIMEN / Unknown 02/03/2025 1:36 PM CDT 02/03/2025 Narrative [facility] ACCOUNT BILL - 02/04/2025 10:10 AM CDT Performed at: - [facility] [id number] [employer] Supervisor: Logan Ferris PhD, Phone: [phone] us Homa Brown CLIENT EXPERIENCE MANAGER-CLIENT LEADER LAB - CHEMISTRY O RDERABLES Final Result Performing Organization Address [facility] de Phone Number [facility] ACCOUNT BILL [address] [place] [address] * COPPER BLOOD (02/03/2025 1:36 PM CDT) Pathologist [facility] Copper 99 69 - 132 ug/dL [facility] ACCOUNT BILL Comment:Detection Limit = 5 Blood BLOOD SPECIMEN / Unknown 02/03/2025 1:36 PM CDT 02/03/2025 Narrative [facility] ACCOUNT BILL - 02/06/2025 11:07 PM CDT Test(s) 738608-Avzyhu, Serum or Plasma was developed and its performance characteristics determined by [facility]. It has not been cleared or approved by the Food and Drug Administration. Performed at: - [facility] [id number] P[employer]vers Supervisor: Thelma Miranda MD, Phone: [phone] us Homa Brown CLIENT EXPERIENCE MANAGER-CLIENT LEADER LAB - CHEMISTRY O RDERABLES Final Result Performing Organization Address City/[facility]/ZIP Co de Phone Number [facility] ACCOUNT BILL [address] [place] [address] * FOLATE RBC (02/03/2025 1:36 PM CDT) Pathologist [facility] Folate Hemolysate 326.0 Not Estab. ng/mL [facility] ACCOUNT BILL Folate RBC 916 >498 ng/mL [facility] ACCOUNT BILL Blood BLOOD SPECIMEN / Unknown 02/03/2025 1:36 PM CDT 02/03/2025 Narrative [facility] ACCOUNT BILL - 02/04/2025 5:09 PM CDT Performed at: - [facility] [id number] [place], [place] [id number] P[employer] Covers Supervisor: Logan Ferris PhD, Phone: [phone] Homa Brown CLIENT EXPERIENCE MANAGER-CLIENT LEADER LAB - CHEMISTRY O RDERABLES Final Result Performing Organization Address City/[facility] Co de Phone Number [facility] ACCOUNT BILL [address] [place] [address] * (ABNORMAL) CBC W/O DIFFERENTIAL (02/03/2025 1:36 PM CDT) Pathologist [facility] WBC 3.6 3.4 - 10.8 x10E3/uL [facility] [...] AM CDT Performed at: 01 - [facility] [address] [id number] [employer] Supervisor: Logan Ferris PhD, Phone: [phone] Homa Brown CLIENT EXPERIENCE MANAGER-CLIENT LEADER LAB - HEMATOLOGY ORDERABLES Final Result [facility] ACCOUNT BILL [address] [place] [address] * (ABNORMAL) COMPREHENSIVE METABOLIC PANEL (02/03/2025 1:36 PM CDT) [facility] Glucose 75 70 - 99 mg/dL [facility] [...] AM CDT Performed at: 01 - [facility] [address] [id number] [employer] Supervisor: Logan Ferris PhD, Phone: [phone] us Homa Brown CLIENT EXPERIENCE MANAGER-CLIENT LEADER LAB - CHEMISTRY O RDERABLES Final Result Performing Organization Address City/[facility]/ZIP Co de Phone Number [facility] ACCOUNT BILL [address] [place] [address] * MAGNESIUM BLOOD (02/03/2025 1:36 PM CDT) Magnesium 2.1 1.6 - 2.3 mg/dL [facility] ACCOUNT BILL Blood BLOOD SPECIMEN / Unknown 02/03/2025 1:36 PM CDT 02/03/2025 Narrative [facility] ACCOUNT BILL - 02/04/2025 11:10 AM CDT Performed at: 01 - [facility] [id number] [employer] Supervisor: Logan Ferris PhD, Phone: [phone] us Homa Brown CLIENT EXPERIENCE MANAGER-CLIENT LEADER LAB - CHEMISTRY O RDERABLES Final Result Performing Organization Address [facility] Co de Phone Number [facility] ACCOUNT BILL [address] [place] [address] * (ABNORMAL) FERRITIN (02/03/2025 1:36 PM CDT) Ferritin 11(L) 30 - 400 ng/mL [facility] ACCOUNT BILL Blood BLOOD SPECIMEN / Unknown 02/03/2025 1:36 PM CDT 02/03/2025 Narrative [facility] ACCOUNT BILL - 02/04/2025 11:10 AM CDT Performed at: 01 - [facility] [id number] [employer] Supervisor: Logan Ferris PhD, Phone: [phone] us Homa Brown CLIENT EXPERIENCE MANAGER-CLIENT LEADER LAB - CHEMISTRY O RDERABLES Final Result Performing Organization Address City/[facility]/ZIP Co de Phone Number [facility] ACCOUNT BILL [address] [place] [address] * (ABNORMAL) ZINC BLOOD (02/03/2025 1:35 PM CDT) Zinc, Plasma or Serum 131(H) 44 - 115 ug/dL [facility] ACCOUNT BILL Comment:Detection Limit = 5 Blood BLOOD SPECIMEN / Unknown 02/03/2025 1:35 PM CDT 02/03/2025 Narrative [facility] ACCOUNT BILL - 02/06/2025 11:07 PM CDT Test(s) 663039-Mncy, Plasma or Serum was developed and its performance characteristics determined by [facility]. It has not been cleared or approved by the Food and Drug Administration. Performed at: - [facility] [id number] [employer] Supervisor: Thelma Miranda MD, Phone: [phone] Homa Brown CLIENT EXPERIENCE MANAGER-[facility] LAB - CHEMISTRY O RDERABLES Final Result Performing Organization Address [facility] Phone Number [facility] ACCOUNT BILL [address] [place] [address] * VITAMIN B1 (02/03/2025 1:35 PM CDT) Pathologist [facility] Vitamin B1 Whole Blood 107.6 66.5 - 200.0 nmol/L [facility] ACCOUNT BILL Blood BLOOD SPECIMEN / Unknown 02/03/2025 1:35 PM CDT 02/03/2025 Narrative [facility] ACCOUNT BILL - 02/06/2025 6:09 PM CDT Test(s) 023588-Hcm. B1, Whole Blood was developed and its performance characteristics determined by [facility]. It has not been cleared or approved by the Food and Drug Administration. Performed at: - [facility] [id number] [employer] Supervisor: Thelma Miranda MD, Phone: [phone] Homa Brown CLIENT EXPERIENCE MANAGER-CLIENT LEADER LAB - CHEMISTRY O RDERABLES Final Result Performing Organization Address [facility] de Phone Number [facility] ACCOUNT BILL [address] [place] [address] * (ABNORMAL) VITAMIN D 25-HYDROXY (02/03/2025 1:35 PM CDT) Vitamin D, 25 Hydroxy 18.3(L) 30.0 - 100.0 ng/mL [facility] ACCOUNT BILL Comment: Vitamin D deficiency has been defined by the [place] of Medicine and an Endocrine Society practice guideline as a level of serum 25-OH vitamin D less than 20 ng/mL (1,2). The Endocrine Society went on to further define vitamin D insufficiency as a level between 21 and 29 ng/mL (2). 1. IOM ([place] of Medicine). 2010. Dietary reference intakes for [...] 02/04/2025 8:11 AM CDT Performed at: - [facility] [id number] [employer] Supervisor: Logan Ferris PhD, Phone: [phone] Homa Brown CLIENT EXPERIENCE MANAGER-CLIENT LEADER LAB - CHEMISTRY O RDERABLES Final Result Performing Organization Address City/State/[facility] Co de Phone Number [facility] ACCOUNT BILL [address] [place] [address] * PREALBUMIN (02/03/2025 1:35 PM CDT) Prealbumin 16 10 - 36 mg/dL [facility] ACCOUNT BILL Blood BLOOD SPECIMEN / Unknown 02/03/2025 1:35 PM CDT 02/03/2025 Narrative [facility] ACCOUNT BILL - 02/04/2025 1:09 PM CDT Performed at: - [facility] [id number] [employer] Supervisor: Logan Ferris PhD, Phone: [phone] us Homa Brown CLIENT EXPERIENCE MANAGER-CLIENT LEADER LAB - CHEMISTRY O RDERABLES Final Result Performing Organization Address City/[facility]/ZIP Co de Phone Number [facility] ACCOUNT BILL [address] [place] [address] * (ABNORMAL) IRON + TIBC PANEL (02/03/2025 [...] 02/04/2025 8:11 AM CDT Performed at: - [facility] [id number] [employer] Supervisor: Logan Ferris PhD, Phone: [phone] us Homa Brown CLIENT EXPERIENCE MANAGER-CLIENT LEADER LAB - CHEMISTRY O RDERABLES Final Result Performing Organization Address [facility] Co de Phone Number [facility] ACCOUNT BILL [address] [place] [address] * VITAMIN B12 (02/03/2025 1:35 PM CDT) Vitamin B12 531 232 - 1,245 pg/mL [facility] ACCOUNT BILL Blood BLOOD SPECIMEN / Unknown 02/03/2025 1:35 PM CDT 02/03/2025 Narrative [facility] ACCOUNT BILL - 02/04/2025 8:11 AM CDT Performed at: - [facility] [id number] [employer] Supervisor: Logan Ferris PhD, Phone: [phone] us Homa Brown CLIENT EXPERIENCE MANAGER-CLIENT LEADER LAB - CHEMISTRY O RDERABLES Final Result [facility] ACCOUNT BILL [address] [place] [address] from Last 3 Months Insurance ANTHEM ANTHEM Advance Directives Documents on File Type Date Recorded Patient Information Technology Director Expl anation Adv Directive/Living Will/POA 01/16/2022 Living Will 01/16/22 * Full Code (Latest Code Status on File) Date Activated Date Inactivated Comments 01/16/2022 6:52 PM 01/18/2022 1:02 PM Care Teams State Manager Relationship Specialty Start Date End Date Iglesia Benavides MD [address] [place] [phone] PCP - General 09/04/21
--- OUTSIDE RECORDS SUMMARY | 2025-04-01 08:30 | XMS_ITS | Referral Summary ---
Author Organization [facility] Address [address] [place] [address] Care Team Providers Care Bulk Truck Driver Name Role Phone Iglesia Benavides MD Primary Care Provider [phone] -[phone] Allergies No known active allergies Medications albuterol [...] on file Legal Sex Male 9:14 PM SUPERVISOR CELL EFFICIENCY Gender Identity Male 11/26/2019 6:24 AM SUPERVISOR CELL EFFICIENCY Sexual Orientation Straight 11/26/2019 6: 24 AM SUPERVISOR CELL EFFICIENCY Last Filed Vital Signs Vital Sign Reading [...] Plan of Treatment Not on file Insurance [facility] [employer] OOS [employer] OOS Care Teams Bulk Truck Driver Relationship Specialty Start Date End Date Iglesia Benavides MD PCP - General 07/18/22
--- OUTSIDE RECORDS SUMMARY | 2025-04-01 08:30 | XMS_ITS | Clinical Summary ---
Author Organization [facility] Anisha Angelo Address [address] [place] [address] Care Team Providers Care Cost Specialist Name Role Phone Mendoza Bryant DO Primary [...] 2) 2019 INFLUENZA VACCINE (#1) [address] [facility] EPO Care Teams Cost Specialist Relationship Specialty Start Date End Date Mendoza Bryant DO NO ADDRESS ON FILE PCP - General Family Practice 05/18/21
--- OUTSIDE RECORDS SUMMARY | 2025-04-01 08:30 | XMS_ITS | Clinical Summary ---
Author Organization [facility] Address [address] [place] [address] Care Team Providers Care Dry Roaster Name Role Phone Iglesia Benavides MD Primary Care Provider +1 -[phone] Allergies No known active allergies Medications albuterol [...] on file Legal Sex Male 9:14 PM TILE AND MARBLE SETTER Gender Identity Male 11/26/2019 6:24 AM TILE AND MARBLE SETTER Sexual Orientation Straight 11/26/2019 6: 24 AM TILE AND MARBLE SETTER Obstetrics History Last Filed Vital Signs Vital [...] patient's age to complete this topic Insurance [facility] ACCESS BLUE ACCESS OOS [employer] ACCESS OOS Care Teams Dry Roaster Relationship Specialty Start Date End Date Iglesia Benavides MD PCP - General 07/18/22
[2025-04-01 19:08] LABS: Iron 62 ug/dL (49-181)
[2025-04-01 19:21] LABS: Percent Iron Saturation 13 % (20-50)
[2025-04-01 19:44] LABS: Ferritin 6.64 ng/mL (11.1-264)
== END 2025-04-01 08:26 | disposition home or self-care (01) ==
LOC: ANHBWCLAB 08:26
PROVIDERS: PCP Family Medicine; Visit Provider Family Medicine
DX: D64.9 Anemia, unspecified (principal); D72.819 Decreased white blood cell count, unspecified
CPT/HCPCS: 36415; 82607; 82728; 83540; 83550